=== PATIENT | male | born 1955 | race Hispanic/Latino ===

== ENCOUNTER 2018-12-22 01:03 | Inpatient (IN) | payer OTHER ==
[2018-12-22] MEDS ORDERED: NACL 0.9% 1000 ML 1,000 ML IV ONE (01:20)
[2018-12-22] MEDS ORDERED: MORPHINE IV ONE (01:20)
[2018-12-22] MEDS ORDERED: ZOFRAN IV ONE (01:20)
[2018-12-22] MEDS ORDERED: NACL 0.9% 500 ML 500 ML IV ONE (01:20)
[2018-12-22] MEDS ORDERED: NACL 0.9% 1000 ML 2,000 ML IV ONE (01:20)
[2018-12-22] MEDS ORDERED: D50W (25GM) Syringe IV ONE (01:24)
[2018-12-22] MEDS ORDERED: LEVAQUIN 750MG/150ML 750 MG/150 ML BAG IV ONE (01:45)
--- NOTE | 2018-12-22 01:46 | Emergency Department Report ---
ED General Adult HPI - General Chief complaint: Abdominal Pain Stated complaint: RT FLANK PAIN Time Seen by Provider: 12/22/18 01:12 Source: patient, EMS (ems notes not available at time of chart dictation), RN notes reviewed Mode of arrival: Stretcher Limitations: Physical Limitation - History of Present Illness Initial comments: This is a pleasant 63-year-old gentleman who is not known to this provider previously, reports a past medical history of hypertension and obesity. The patient presents to the emergency room today with a complaint of nont raumatic right flank and right upper quadrant pain which started approximately 24 hours ago. The pain is sharp, constant, increases with palpation, positioning, and decreases with rest. Patient may have had an episode of vomiting 1, he denies lower abdominal pain, testicular pain, diarrhea, urinary symptoms. He denies DVT, pulmonary embolus risk factors, and he denies a history of hypoxia or previous respiratory failure. -: Gradual Location: abdomen Radiation: non-radiation Severity scale (0 -10): 10 Quality: aching Consistency: constant Improves with: other Worsens with: other Associated Symptoms: fever/chills (questionable fever, not certain), headaches, malaise, weakness. denies: confusion, chest pain, cough, diaphoresis, rash, seizure - Related Data Home Medications Medication Instructions Recorded Confirmed Last Taken Methadone [Dolophine] 10 mg PO DAILY 12/22/18 12/22/18 Unknown Allergies Allergy/AdvReac Type Severity Reaction Status Date / Time No Known Allergies Allergy Verified 12/22/18 01:25 ED Review of Systems ROS: Stated complaint: RT FLANK PAIN Other details as noted in HPI Constitutional: malaise Eyes: denies: vision change ENT: denies: epistaxis Respiratory: denies: cough Cardiovascular: denies: chest pain Gastrointestinal: abdominal pain Genitourinary: denies: dysuria, testicular pain Musculoskeletal: denies: back pain Skin: denies: lesions Neurological: weakness Psychiatric: denies: anxiety ED Past Medical Hx - Past Medical History Hx Hypertension: Yes Additional medical history: Heroin use - Social History Smoking Status: Never Smoker Substance Use Type: Alcohol - Medications Home Medications: Home Medications Medication Instructions Recorded Confirmed Last Taken Type Methadone [Dolophine] 10 mg PO DAILY 12/22/18 12/22/18 Unknown History ED Physical Exam - General Limitations: No Limitations General appearance: alert, in no apparent distress, obese - Head Head exam: Present: atraumatic, normocephalic - Eye Eye exam: Present: normal appearance, EOMI. Absent: nystagmus - ENT ENT exam: Present: normal exam, normal orophraynx, mucous membranes moist, normal external ear exam - Neck Neck exam: Present: normal inspection, full ROM. Absent: tenderness, meningismus - Respiratory Respiratory exam: Present: normal lung sounds bilaterally. Absent: respiratory distress - Cardiovascular Cardiovascular Exam: Present: regular rate, normal rhythm, normal heart sounds. Absent: bradycardia, tachycardia, irregular rhythm, systolic murmur, diastolic murmur, rubs, gallop - GI/Abdominal GI/Abdominal exam: Present: soft, tenderness, guarding, other (there is right upper quadrant tenderness, with a positive Lehman sign). Absent: distended, rebound, rigid, pulsatile mass - Rectal Rectal exam: Present: deferred - Extremities Exam Extremities exam: Present: normal inspection, full ROM, other (2+ pulses noted in the bilateral upper, lower extremities. Compartments soft. No long bony tenderness. The pelvis is stable.). Absent: pedal edema, joint swelling, calf tenderness - Back Exam Back exam: Present: normal inspection, full ROM. Absent: tenderness, CVA tenderness (R), paraspinal tenderness, vertebral tenderness - Neurological Exam Neurological exam: Present: alert, oriented X3, CN II-XII intact, other (Extraocular movements intact. Tongue midline. No facial droop. Facial sensation intact to light touch in the V1, V2, V3 distribution bilaterally. 5 and 5 strength in 4 extremities.. Sensation is intact to light touch in 4 extremities.). Absent: motor sensory deficit - Psychiatric Psychiatric exam: Present: anxious - Skin Skin exam: Present: warm, dry, intact, normal color. Absent: rash ED Course Vital Signs 12/22/18 12/22/18 12/22/18 01:19 01:27 01:46 Temperature 99.2 F 99.2 F Pulse Rate 94 H 84 Respiratory 18 16 Rate Blood Pressure 118/63 118/63 [Right] O2 Sat by Pulse 93 98 96 Oximetry - Reevaluation(s) Reevaluation #1: 12/22/18 02:18 Differential diagnosis, including but not limited to: Cholecystitis, pneumonia, intra-abdominal infection, pneumonia Assessment and plan: 63-year-old gentleman with very tender abdomen, low-grade temperature, heart rate greater than 90, concerning for abdominal sepsis. We will treat the patient empirically according to the sepsis protocol. He will be covered with IV fluids, pain medication, nausea medication and empiric Levaquin at this juncture. Diagnostics pending at this time. To my interpretation, the X-ray of the chest appears to represent a right lower lobe pneumonia or consolidation, but the radiologist interpreted this as hypo-aerated. A noncontrast CT scan of the abdomen and pelvis may better differentiate. Right upper quadrant ultrasound is also pending. Reevaluation #2: 12/22/18 03:12 Case presents to Hospital physician, Dr. Mock, she accepts the patient to the medical service. ED Medical Decision Making - Lab Data Result diagrams: 12/22/18 01:27 12/22/18 01:27 Vital Signs 12/22/18 12/22/18 12/22/18 01:19 01:27 01:46 Temperature 99.2 F 99.2 F Pulse Rate 94 H 84 Respiratory 18 16 Rate Blood Pressure 118/63 118/63 [Right] O2 Sat by Pulse 93 98 96 Oximetry Lab Results 12/22/18 Range/Units 01:27 WBC 13.1 H (4.5-11.0) K/mm3 RBC 3.91 (3.65-5.03) M/mm3 Hgb 11.2 L (11.8-15.2) gm/dl Hct 33.7 L (35.5-45.6) % MCV 86 (84-94) fl MCH 29 (28-32) pg MCHC 33 (32-34) % RDW 15.4 H (13.2-15.2) % Plt Count 226 (140-440) K/mm3 Lymph % (Auto) 7.4 L (13.4-35.0) % [facility] % (Auto) 4.9 (0.0-7.3) % Eos % (Auto) 0.1 (0.0-4.3) % Baso % (Auto) 0.2 (0.0-1.8) % Lymph # 1.0 L (1.2-5.4) K/mm3 [facility] # 0.6 (0.0-0.8) K/mm3 Eos # 0.0 (0.0-0.4) K/mm3 Baso # 0.0 (0.0-0.1) K/mm3 Seg Neutrophils % 87.4 H (40.0-70.0) % Seg Neutrophils # 11.4 H (1.8-7.7) K/mm3 - EKG Data -: EKG Interpreted by Me EKG shows normal: sinus rhythm Rate: normal - EKG Data When compared to previous EKG there are: previous EKG unavailable 12/22/18 02:19 Sinus, 87 bpm, normal axis, QTC prolonged, low voltage in the lateral leads, abnormal EKG, not consistent with ST elevation myocardial infarction. - Radiology Data Radiology results: report reviewed, image reviewed X-ray of the chest negative for acute disease. Appears to be hypoaerated Print Report Referring Physician: YONI PANDEY Patient Name: RIYA REDDY Date of : 1955 Sex: Male Report Date: 2018-12-22 Report Status: Finalized Findings [facility] [address] [place] [address] Cat Scan Report Signed Patient: RIYA REDDY MR#: [id number] : 1955 Acct:[id number] Age/Sex: 63 / M ADM Date: 12/22/18 Loc: ED Attending Dr: Ordering Physician: YONI PANDEY MD Date of Service: 12/22/18 Procedure(s): CT abdomen pelvis wo con Accession Number(s): [id number] cc: YONI PANDEY MD FINAL REPORT EXAM: CT ABDOMEN PELVIS WO CON HISTORY: ruq pain pna vs cholecystitis TECHNIQUE: Helical CT scan through the abdomen and pelvis without contrast. Images are reconstructed in the sagittal and coronal planes. PRIORS: None. FINDINGS: Solid organ and bowel evaluation is limited without intravenous contrast. Bowel evaluation is limited without oral contrast. Images through the lower thorax show extensive coronary artery atherosclerotic calcification. The heart was not completely scanned. The liver, gallbladder, pancreas, spleen and left adrenal gland appear grossly normal. There is a 2.2 cm right adrenal mass most likely representing an adrenal adenoma. It has scattered coarse calcifications possibly from old hemorrhage. The kidneys appear grossly normal. The pelvic organs appear grossly normal. The stomach appears grossly within normal limits. There is diffuse thickening of the wall of the right colon with associated pericolonic inflammatory fat change. There is an air-fluid level in the transverse colon without wall thickening. There is a relatively large amount of stool in the left and sigmoid colon without inflammatory change. A normal- appearing appendix is identified. The abdominal aorta has a normal diameter. There are multiple bilateral old healed old bilateral rib fractures. There is multilevel degenerative disc and facet disease of the lumbar spine. IMPRESSION: 1. Findings are consistent with diffuse colitis of the right colon 2. Question constipation 3. Extensive coronary artery atherosclerotic calcification Transcribed By: ML Dictated By: VINCENZO DE LEÓN MD Electronically Authenticated By: VINCENZO DE LEÓN MD Signed Date/Time: 12/22/18 8965 Critical care attestation.: If time is entered above; I have spent that time in minutes in the direct care of this critically ill patient, excluding procedure time. ED Disposition Clinical Impression: SIRS (systemic inflammatory response syndrome) Disposition: OP ADMIT IP TO THIS HOSP Is pt being admited?: Yes Condition: Good Referrals: STAN RUFF MD [Primary Care Provider] - 3-5 Days
--- NOTE | 2018-12-22 02:00 | XRay Report ---
FINAL REPORT EXAM: XR CHEST 1V AP HISTORY: ruq pain hypoxia TECHNIQUE: AP portable view of the chest. PRIORS: None. FINDINGS: The cardiomediastinal silhouette appears normal. The lungs are hypo aerated but clear. There is an ol d, healed left clavicular fracture. IMPRESSION: No evidence of acute cardiopulmonary disease.
[2018-12-22 02:18] LABS: Basophils % (Auto) 0.2 % (0.0-1.8); Eosinophils % (Auto) 0.1 % (0.0-4.3); Hematocrit 33.7 % (35.5-45.6); Hemoglobin 11.2 gm/dl (11.8-15.2); Lymphocytes % (Auto) 7.4 % (13.4-35.0); Mean Corpuscular HGB Conc 33 % (32-34); Mean Corpuscular Volume 86 fl (84-94); Monocytes # (Auto) 0.6 K/mm3 (0.0-0.8); Monocytes % (Auto) 4.9 % (0.0-7.3); Platelet Count 226 K/mm3 (140-440); Red Blood Count 3.91 M/mm3 (3.65-5.03); Red Cell Distribution Width 15.4 % (13.2-15.2)
[2018-12-22 02:32] LABS: INR 0.99 (0.87-1.13)
[2018-12-22 02:33] LABS: Partial Thromboplastin Time 26.5 Sec. (24.2-36.6)
[2018-12-22 02:39] LABS: Alanine Aminotransferase 11 units/L (7-56); BUN/Creatinine Ratio 25; Blood Urea Nitrogen 15 mg/dL (9-20); Calcium 8.3 mg/dL (8.4-10.2); Hemolysis Index 63
[2018-12-22] MEDS ORDERED: FLAGYL PO STA (02:56)
--- NOTE | 2018-12-22 03:09 | Cat Scan Report ---
FINAL REPORT EXAM: CT ABDOMEN PELVIS WO CON HISTORY: ruq pain pna vs cholecystitis TECHNIQUE: Helical CT scan through the abdomen and pelvis without contrast. Images are reconstructed in the sagittal and coronal planes. PRIORS: None. FINDINGS: Solid organ and bowel evaluation is limited without intravenous contrast. Bowel evaluation is limited without oral contrast. Images through the lower thorax show extensive coronary artery atherosclerotic calcification. The hea rt was not completely scanned. The liver, gallbladder, pancreas, spleen and left adrenal gland appear grossly normal. There is a 2.2 cm right adrenal mass most likely representing an adrenal adenoma. It has scattered coarse calcifica tions possibly from old hemorrhage. The kidneys appear grossly normal. The pelvic organs appear grossly normal. The stomach appears grossly within normal limits. There is diffuse thickening of the wall of the right colon with associated pericolonic inflammatory f at change. There is an air-fluid level in the transverse colon without wall thickening. There is a re latively large amount of stool in the left and sigmoid colon without inflammatory change. A normal-ap pearing appendix is identified. The abdominal aorta has a normal diameter. There are multiple bilateral old healed old bilateral rib fractures. There is multilevel degenerative disc and facet disease of the lumbar spine. IMPRESSION: 1. Findings are consistent with diffuse colitis of the right colon 2. Question constipation 3. Extensive coronary artery atherosclerotic calcification
--- NOTE | 2018-12-22 04:02 | Ultrasound Report ---
FINAL REPORT EXAM: US ABDOMEN LIMITED HISTORY: ruq pain ? cholecystitis TECHNIQUE: Real-time sonography was performed of the right upper quadrant and images are submitted f or interpretation. PRIORS: None. FINDINGS: The liver has a normal homogeneous echotexture without focal lesions. The gallbladder appears normal without stones. The common bile duct is dilated up to 1 cm. The pancreas has a normal echogenicity and appearance. The visualized segments of the abdominal aorta appear normal. The right kidney appears normal in size, shape and echogenicity, measuring 10.9 x 6.7 x 6.0 cm. IMPRESSION: The gallbladder appears normal Mild dilatation of the common bile duct. Recommend correlation with laboratory evidence of biliary di latation.
[2018-12-22] MEDS ORDERED: SODIUM CHLORIDE FLUSH SYRINGE 10 ML IV PRN (04:04)
[2018-12-22] MEDS ORDERED: TYLENOL PO PRN (04:04)
[2018-12-22] MEDS ORDERED: ZOFRAN IV PRN (04:04)
--- NOTE | 2018-12-22 04:18 | History and Physical Report ---
History of Present Illness Date of examination: 12/22/18 History of present illness: 63-year-old man history of hypertension comes to emergency room with complaint of abdominal pain. Pain is in the right lower quadrant that started yesterday, sharp, constant, intensity 7/10, no radiation, cannot identify exacerbating f actor, relieved with pain medication. Admits to chills Review of systems Constitutional: no weight loss, + fever Ears, eyes, nose, mouth and throat: no nasal congestion, no nasal discharge, no sinus pressure, no vision change, no red eye. Neck: No neck pain or rigidity. Cardiovascular: no palpitations, chest pain Respiratory: no cough, shortness of breath Gastrointestinal: no hematochezia, +abdominal pain Genitourinary : no frequency , no hematuria Musculoskeletal: no joint swelling or muscle ache Integumentary: no rash, no pruritis Neurological: no parathesias, no focal weakness Endocrine: no cold or heat intolerance, no polyuria or polydipsia Hematologic/Lymphatic: no easy bruising, no easy bleeding, no gland swelling Allergic/Immunologic: no urticaria, no angioedema. PAST MEDICAL HISTORY:hypertension PAST SURGICAL HISTORY: None SOCIAL HISTORY: +alcohol, drugs, +tobacco FAMILY HISTORY: Hypertension Medications and Allergies Allergies Allergy/AdvReac Type Severity Reaction Status Date / Time No Known Allergies Allergy Verified 12/22/18 01:25 Home Medications Medication Instructions Recorded Confirmed Last Taken Type Methadone [Dolophine] 10 mg PO DAILY 12/22/18 12/22/18 Unknown History Active Meds: Active Medications Acetaminophen (Tylenol) 650 mg PO Q4H PRN PRN Reason: Pain MILD(1-3)/Fever >100.5/QUARLES Enoxaparin Sodium (Lovenox) 40 mg SUB-Q QDAY@1000 [facility] Sodium Chloride (Nacl 0.45% 1000 Ml) 1,000 mls @ 125 mls/hr IV DIRECT L[facility]ZO Levofloxacin/Dextrose (Levaquin 750mg/150ml) 750 mg in 150 mls @ 100 mls/hr IV Q24H [facility] Metronidazole (Flagyl) 500 mg PO Q8H [facility]; Protocol Morphine Sulfate (Morphine) 2 mg IV Q4H PRN PRN Reason: Pain, Moderate (4-6) Ondansetron HCl (Zofran) 4 mg IV Q4H PRN PRN Reason: Nausea And Vomiting Sodium Chloride (Sodium Chloride Flush Syringe 10 Ml) 10 ml IV BID LORENZO Sodium Chloride (Sodium Chloride Flush Syringe 10 Ml) 10 ml IV PRN PRN PRN Reason: LINE FLUSH Exam - Physical Exam Narrative exam: General Apperance: The patient lying in bed, breathing comfortable HEENT: Normocephalic, atraumatic. Pupils equally round and reactive to light, EOMI, no sclericterus or JVD or thyromegaly or nodule. , no carotid bruit, mucous membranes moist, no exudate or erythema Heart: S1-S2, regular is rhythm Lungs: Clear to auscultation bilaterally, breathing comfortable Abdomen: Positive bowel sounds, soft, tender in RLQ, nondistended, no organomegaly Extremities: No edema cyanosis clubbing Skin: no rash, nodule, warm and dry Neuro: cranial nerves 2-12 intact, speech is fluent, motor/sensory intact - Constitutional Vitals: Temp Pulse Resp BP Pulse Ox 99.2 F 84 16 118/63 96 12/22/18 01:46 12/22/18 01:46 12/22/18 01:46 12/22/18 01:46 12/22/18 01:46 Results - Labs CBC & Chem 7: 12/22/18 01:27 12/22/18 01:27 Labs: Abnormal lab results 12/22/18 12/22/18 12/22/18 Range/Units 01:27 01:27 01:27 WBC 13.1 H (4.5-11.0) K/mm3 Hgb 11.2 L (11.8-15.2) gm/dl Hct 33.7 L (35.5-45.6) % RDW 15.4 H (13.2-15.2) % Lymph % (Auto) 7.4 L (13.4-35.0) % Lymph # 1.0 L (1.2-5.4) K/mm3 Seg Neutrophils % 87.4 H (40.0-70.0) % Seg Neutrophils # 11.4 H (1.8-7.7) K/mm3 Creatinine 0.6 L (0.8-1.5) mg/dL Glucose 120 H (75-100) mg/dL Calcium 8.3 L (8.4-10.2) mg/dL Lipase 7 L (13-60) units/L - Imaging and Cardiology CT scan - abdomen: report reviewed CT scan - pelvis: report reviewed Assessment and Plan Assessment Colitis, acute onset Hypertension Obesity Plan Start IV fluids, IV Levaquin, Flagyl Cultures, place on bowel rest, consult GI IV morphine, DVT prophylaxis
[2018-12-22 05:07] LABS: Bilirubin,Urine NEG (Negative); Blood,Urine NEG (Negative); Color,Urine Yellow (Yellow); Mucus,Urine FEW /HPF; Urobilinogen,Urine < 2.0 mg/dL (<2.0); WBC,Urine < 1.0 /HPF (0.0-6.0)
[2018-12-22] MEDS: MORPHINE IV PRN ×4 (06:08→22:43)
[2018-12-22] MEDS: NACL 0.45% 1000 ML 1,000 ML IV SCH ×3 (06:12→22:51)
[2018-12-22] MEDS ORDERED: LOVENOX SUB-Q SCH (10:00)
[2018-12-22] MEDS: FLAGYL PO SCH ×2 (10:18→22:42)
[2018-12-22] MEDS: LOVENOX SUB-Q SCH (10:18)
[2018-12-22] MEDS: SODIUM CHLORIDE FLUSH SYRINGE 10 ML IV SCH ×2 (10:19→22:42)
--- NOTE | 2018-12-22 12:43 | Event Note ---
Date: 12/22/18 63-year-old male patient was admitted for abdominal pain Workup was consistent with diffuse colitis Patient is on nothing by mouth status on empiric antibiotics GI evaluated, recommendations noted medical records reviewed, Started clear liquids ,agree with the current management Plan of care is reviewed with the patient and his nurse
--- NOTE | 2018-12-22 13:05 | Gastroenterology Consultation ---
Addendum entered and electronically signed by INDIA CUEVAS MD 12/22/18 16:17: Patient seen and examined on 12/22/2018. 63 yo male with pmh of HTN, PVD, and CAD admitted for RLQ abdominal pain. CT abdomen showed right sided colitis. DDx include infectious etiology vs ischemic colitis. Will monitor while on empiric antibiotics. Original Note: History of Present Illness - Reason for Consult Consult date: 12/22/18 colitis Requesting physician: DAVID TIPTON - History of Present Illness Patient is a 63 y/o male with PMH of HTN, PVD, CAD (s/p angioplasty), and substance abuse (ex heroin user; now on methadone) who presented to ED with c/o abdominal pain. Upon admission, CT showed colitis to which GI has been consulted. This morning patient was sitting on the side to the bed w/o acute distress. He report RLQ abd pain x 2 days with chills. Admits to chronic constipation 2/2 narcotic use. Denies CP, SOB, wt loss, N/V, signs of bleeding, or diarrhea. No recent abx therapy, travel, or known ill contacts. No hx or Fhx of IBD or colon cancer. No previous colonoscopy. Past History Past Medical History: other (as per HPI) Past Surgical History: Other (vascular surgery, angioplasty) Social history: other (former drug user (heroin); chronic narcotic use (methadone), alcohol) Family history: hypertension Medications and Allergies Allergies Allergy/AdvReac Type Severity Reaction Status Date / Time No Known Allergies Allergy Verified 12/22/18 01:25 Home Medications Medication Instructions Recorded Confirmed Last Taken Type Methadone [Dolophine] 10 mg PO DAILY 12/22/18 12/22/18 Unknown History Active Meds: Active Medications Acetaminophen (Tylenol) 650 mg PO Q4H PRN PRN Reason: Pain MILD(1-3)/Fever >100.5/QUARLES Enoxaparin Sodium (Lovenox) 40 mg SUB-Q QDAY@1000 LORENZO Last Admin: 12/22/18 10:18 Dose: 40 mg Documented by: Sodium Chloride (Nacl 0.45% 1000 Ml) 1,000 mls @ 125 mls/hr IV DIRECT LORENZO Last Admin: 12/22/18 12:59 Dose: 125 mls/hr Documented by: Levofloxacin/Dextrose (Levaquin 750mg/150ml) 750 mg in 150 mls @ 100 mls/hr IV Q24H [facility] Metronidazole (Flagyl) 500 mg PO Q8HR [facility]; Protocol Last Admin: 12/22/18 10:18 Dose: 500 mg Documented by: Morphine Sulfate (Morphine) 2 mg IV Q4H PRN PRN Reason: Pain, Moderate (4-6) Last Admin: 12/22/18 10:33 Dose: 2 mg Documented by: Ondansetron HCl (Zofran) 4 mg IV Q4H PRN PRN Reason: Nausea And Vomiting Sodium Chloride (Sodium Chloride Flush Syringe 10 Ml) 10 ml IV BID [facility] Last Admin: 12/22/18 10:19 Dose: 10 ml Documented by: Sodium Chloride (Sodium Chloride Flush Syringe 10 Ml) 10 ml IV PRN PRN PRN Reason: LINE FLUSH medications reviewed/updated as required Review of Systems - Review of Systems All systems: negative Gastrointestinal: abdominal pain Exam - Constitutional Vital Signs: Temp Pulse Resp BP Pulse Ox 100.0 F H 78 17 118/66 96 12/22/18 05:23 12/22/18 05:23 12/22/18 06:38 12/22/18 05:23 12/22/18 05:23 General appearance: no acute distress - EENT Eyes: PERRL, EOM intact ENT: hearing intact - Respiratory Respiratory: bilateral: diminished - Cardiovascular Rhythm: regular Heart Sounds: Present: S1 & S2 - Gastrointestinal General gastrointestinal: Present: soft, tender (RLQ), non-distended, normal bowel sounds - Neurologic Neurological: alert and oriented x3 - Labs CBC & Chem 7: 12/22/18 01:27 12/22/18 01:27 Lab Results: Laboratory Results - last 24 hr 12/22/18 12/22/18 12/22/18 01:27 01:27 01:27 WBC 13.1 H RBC 3.91 Hgb 11.2 L Hct 33.7 L MCV 86 MCH 29 MCHC 33 RDW 15.4 H Plt Count 226 Lymph % (Auto) 7.4 L [place] % (Auto) 4.9 Eos % (Auto) 0.1 Baso % (Auto) 0.2 Lymph # 1.0 L [place] # 0.6 Eos # 0.0 Baso # 0.0 Seg Neutrophils % 87.4 H Seg Neutrophils # 11.4 H PT 13.7 INR 0.99 APTT 26.5 Sodium 138 Potassium 4.1 Chloride 98.6 Carbon Dioxide 27 Anion Gap 17 BUN 15 Creatinine 0.6 L Estimated GFR > 60 BUN/Creatinine Ratio 25 Glucose 120 H Lactic Acid Calcium 8.3 L Total Bilirubin 0.90 AST 16 ALT 11 Alkaline Phosphatase 59 Total Creatine Kinase Troponin T Total Protein 6.4 Albumin 4.0 Albumin/Globulin Ratio 1.7 Lipase Urine Color Urine Turbidity Urine pH Ur Specific [place] Urine Protein Urine Glucose (UA) Urine Ketones Urine Blood Urine Nitrite Urine Bilirubin Urine Urobilinogen Ur Leukocyte Esterase Urine WBC (Auto) Urine RBC (Auto) U Epithel Cells (Auto) Urine Mucus 12/22/18 12/22/18 12/22/18 01:27 01:27 03:31 WBC RBC Hgb Hct MCV MCH MCHC RDW Plt Count Lymph % (Auto) [place] % (Auto) Eos % (Auto) Baso % (Auto) Lymph # [place] # Eos # Baso # Seg Neutrophils % Seg Neutrophils # PT INR APTT Sodium Potassium Chloride Carbon Dioxide Anion Gap BUN Creatinine Estimated GFR BUN/Creatinine Ratio Glucose Lactic Acid 1.40 1.20 Calcium Total Bilirubin AST ALT Alkaline Phosphatase Total Creatine Kinase 83 Troponin T < 0.010 Total Protein Albumin Albumin/Globulin Ratio Lipase 7 L Urine Color Urine Turbidity Urine pH Ur Specific [place] Urine Protein Urine Glucose (UA) Urine Ketones Urine Blood Urine Nitrite Urine Bilirubin Urine Urobilinogen Ur Leukocyte Esterase Urine WBC (Auto) Urine RBC (Auto) U Epithel Cells (Auto) Urine Mucus 12/22/18 12/22/18 04:48 05:59 WBC RBC Hgb Hct MCV MCH MCHC RDW Plt Count Lymph % (Auto) [place] % (Auto) Eos % (Auto) Baso % (Auto) Lymph # [place] # Eos # Baso # Seg Neutrophils % Seg Neutrophils # PT INR APTT Sodium Potassium Chloride Carbon Dioxide Anion Gap BUN Creatinine Estimated GFR BUN/Creatinine Ratio Glucose Lactic Acid 1.00 Calcium Total Bilirubin AST ALT Alkaline Phosphatase Total Creatine Kinase Troponin T Total Protein Albumin Albumin/Globulin Ratio Lipase Urine Color Yellow Urine Turbidity Clear Urine pH 7.0 Ur Specific [place] 1.021 Urine Protein 30 mg/dl Urine Glucose (UA) Neg Urine Ketones Neg Urine Blood Neg Urine Nitrite Neg Urine Bilirubin Neg Urine Urobilinogen < 2.0 Ur Leukocyte Esterase Tr Urine WBC (Auto) < 1.0 Urine RBC (Auto) 1.0 U Epithel Cells (Auto) < 1.0 Urine Mucus Few Assessment and Plan 1.RLQ abd pain 2.colitis seen on CT -temp 100.0 -WBC 13.1 -H/H 11.2/33.7- no active signs of bleeding -LFTs WNL -abd CT showed diffuse colitis of right colon -etiology uncler- possibly infectious vs inflammatory vs ischemic vs other -no plan for colonoscopy at this time, will consider based on progress if symptoms fail to improve -CRP in am -continue empiric antibiotics (flagyl/levaquin) -stool studies if diarrhea develops -okay for clear liquids -continue supportive care -will follow
[2018-12-23] MEDS: LEVAQUIN 750MG/150ML 750 MG/150 ML BAG IV SCH (01:25)
[2018-12-23] MEDS: MORPHINE IV PRN ×4 (04:02→22:25)
[2018-12-23] MEDS: FLAGYL PO SCH ×3 (05:42→22:23)
[2018-12-23 07:44] LABS: Basophils % (Auto) 0.1 % (0.0-1.8); Eosinophils # (Auto) 0.1 K/mm3 (0.0-0.4); Eosinophils % (Auto) 1.3 % (0.0-4.3); Hematocrit 29.4 % (35.5-45.6); Hemoglobin 9.9 gm/dl (11.8-15.2); Lymphocytes % (Auto) 10.6 % (13.4-35.0); Mean Corpuscular HGB Conc 34 % (32-34); Mean Corpuscular Volume 87 fl (84-94); Monocytes # (Auto) 0.5 K/mm3 (0.0-0.8); Monocytes % (Auto) 5.6 % (0.0-7.3); Platelet Count 187 K/mm3 (140-440); Red Cell Distribution Width 15.3 % (13.2-15.2)
[2018-12-23 07:50] LABS: BUN/Creatinine Ratio 16; Blood Urea Nitrogen 8 mg/dL (9-20); Calcium 8.1 mg/dL (8.4-10.2); Hemolysis Index 3
[2018-12-23] MEDS: NACL 0.45% 1000 ML 1,000 ML IV SCH ×2 (09:39→17:22)
[2018-12-23] MEDS: SODIUM CHLORIDE FLUSH SYRINGE 10 ML IV SCH ×2 (09:40→22:26)
[2018-12-23] MEDS: LOVENOX SUB-Q SCH (09:40)
--- NOTE | 2018-12-23 10:29 | Progress Note ---
Hospitalist Physical - Constitutional Vitals: Temp Pulse Resp BP Pulse Ox 98.4 F 78 24 143/67 92 12/23/18 05:21 12/23/18 05:21 12/23/18 05:21 12/23/18 05:21 12/23/18 05:21 Results - Labs CBC & Chem 7: 12/23/18 06:23 12/23/18 06:23 Labs: Laboratory Last Values WBC 9.6 K/mm3 (4.5-11.0) 12/23/18 06:23 RBC 3.40 M/mm3 (3.65-5.03) L 12/23/18 06:23 Hgb 9.9 gm/dl (11.8-15.2) L 12/23/18 06:23 Hct 29.4 % (35.5-45.6) L 12/23/18 06:23 MCV 87 fl (84-94) 12/23/18 06:23 MCH 29 pg (28-32) 12/23/18 06:23 MCHC 34 % (32-34) 12/23/18 06:23 RDW 15.3 % (13.2-15.2) H 12/23/18 06:23 Plt Count 187 K/mm3 (140-440) 12/23/18 06:23 Lymph % (Auto) 10.6 % (13.4-35.0) L 12/23/18 06:23 [place] % (Auto) 5.6 % (0.0-7.3) 12/23/18 06:23 Eos % (Auto) 1.3 % (0.0-4.3) 12/23/18 06:23 Baso % (Auto) 0.1 % (0.0-1.8) 12/23/18 06:23 Lymph # 1.0 K/mm3 (1.2-5.4) L 12/23/18 06:23 [place] # 0.5 K/mm3 (0.0-0.8) 12/23/18 06:23 Eos # 0.1 K/mm3 (0.0-0.4) 12/23/18 06:23 Baso # 0.0 K/mm3 (0.0-0.1) 12/23/18 06:23 Seg Neutrophils % 82.4 % (40.0-70.0) H 12/23/18 06:23 Seg Neutrophils # 7.9 K/mm3 (1.8-7.7) H 12/23/18 06:23 PT 13.7 Sec. (12.2-14.9) 12/22/18 01:27 INR 0.99 (0.87-1.13) 12/22/18 01:27 APTT 26.5 Sec. (24.2-36.6) 12/22/18 01:27 Sodium 140 mmol/L (137-145) 12/23/18 06:23 Potassium 3.7 mmol/L (3.6-5.0) 12/23/18 06:23 Chloride 100.9 mmol/L (98-107) 12/23/18 06:23 Carbon Dioxide 27 mmol/L (22-30) 12/23/18 06:23 Anion Gap 16 mmol/L 12/23/18 06:23 BUN 8 mg/dL (9-20) L 12/23/18 06:23 Creatinine 0.5 mg/dL (0.8-1.5) L 12/23/18 06:23 Estimated GFR > 60 ml/min 12/23/18 06:23 BUN/Creatinine Ratio 16 % 12/23/18 06:23 Glucose 88 mg/dL (75-100) 12/23/18 06:23 Lactic Acid 1.00 mmol/L (0.7-2.0) 12/22/18 05:59 Calcium 8.1 mg/dL (8.4-10.2) L 12/23/18 06:23 Total Bilirubin 0.90 mg/dL (0.1-1.2) 12/22/18 01:27 AST 16 units/L (5-40) 12/22/18 01:27 ALT 11 units/L (7-56) 12/22/18 01:27 Alkaline Phosphatase 59 units/L (35-129) 12/22/18 01:27 Total Creatine Kinase 83 units/L (55-170) 12/22/18 01:27 Troponin T < 0.010 ng/mL (0.00-0.029) 12/22/18 01:27 C-Reactive Protein 22.80 mg/dL (0.00-1.30) H 12/23/18 06:23 Total Protein 6.4 g/dL (6.3-8.2) 12/22/18 01:27 Albumin 4.0 g/dL (3.9-5) 12/22/18 01:27 Albumin/Globulin Ratio 1.7 % 12/22/18 01:27 Lipase 7 units/L (13-60) L 12/22/18 01:27 Urine Color Yellow (Yellow) 12/22/18 04:48 Urine Turbidity Clear (Clear) 12/22/18 04:48 Urine pH 7.0 (5.0-7.0) 12/22/18 04:48 Ur Specific [place] 1.021 (1.003-1.030) 12/22/18 04:48 Urine Protein 30 mg/dl mg/dL (Negative) 12/22/18 04:48 Urine Glucose (UA) Neg mg/dL (Negative) 12/22/18 04:48 Urine Ketones Neg mg/dL (Negative) 12/22/18 04:48 Urine Blood Neg (Negative) 12/22/18 04:48 Urine Nitrite Neg (Negative) 12/22/18 04:48 Urine Bilirubin Neg (Negative) 12/22/18 04:48 Urine Urobilinogen < 2.0 mg/dL (<2.0) 12/22/18 04:48 Ur Leukocyte Esterase Tr (Negative) 12/22/18 04:48 Urine WBC (Auto) < 1.0 /HPF (0.0-6.0) 12/22/18 04:48 Urine RBC (Auto) 1.0 /HPF (0.0-6.0) 12/22/18 04:48 U Epithel Cells (Auto) < 1.0 /HPF (0-13.0) 12/22/18 04:48 Urine Mucus Few /HPF 12/22/18 04:48
--- NOTE | 2018-12-23 10:39 | Gastroenterology Progress Note ---
Addendum entered and electronically signed by INDIA CUEVAS MD 12/23/18 15:15: Patient seen and examined on 12/23/2018. Agree with A/P as stated. Patient clinically improving. Likely infectious colitis vs ischemic. Continue with empiric abx and supportive care. Advance diet as tolerated. If pain continues to improve and tolerates diet, okay to be d/c in am per GI standpoint on antibiotics with follow up in clinic ~2-3 weeks Original Note: Assessment and Plan 1.RLQ abd pain 2.colitis seen on CT -afebrile -WBC 9.6-trended down -H/H 9.9/29.4- no active signs of bleeding -LFTs WNL -CRP 22.8 -abd CT showed diffuse colitis of right colon -etiology uncler- possibly infectious vs inflammatory vs ischemic vs other -clinically, patient is stable wiht RLQ abd pain now improving. No N/V, diarrhea, or signs of bleeding. -no plan for scope at this time -continue empiric antibiotics (flagyl/levaquin) -stool studies if diarrhea -okay to advance diet to GI soft -continue supportive care -recommend colonoscopy as an outpatient in 4-6 weeks for further evaluation once acute colitis has resolved -if pain continues to improve and tolerates diet, okay to be d/c in am per GI standpoint on antibiotics with follow up in clinic ~2-3 weeks Subjective Date of service: 12/23/18 Principal diagnosis: colitis Interval history: Patient resting in bed w/o acute distress. Reports RLQ abd pain is improving. No N/V, diarrhea, or signs of bleeding. Objective - Constitutional Vitals: Temp Pulse Resp BP Pulse Ox 98.4 F 78 24 143/67 92 12/23/18 05:21 12/23/18 05:21 12/23/18 05:21 12/23/18 05:21 12/23/18 05:21 General appearance: no acute distress - EENT Eyes: PERRL, EOM intact ENT: hearing intact - Respiratory Respiratory: bilateral: diminished - Cardiovascular Rhythm: regular Heart Sounds: Present: S1 & S2 - Gastrointestinal General gastrointestinal: Present: soft, tender (RLQ), non-distended, normal bowel sounds - Neurologic Neurological: alert and oriented x3 - Labs CBC & Chem 7: 12/23/18 06:23 12/23/18 06:23 Labs: Laboratory Results - last 24 hr 12/23/18 12/23/18 06:23 06:23 WBC 9.6 RBC 3.40 L Hgb 9.9 L Hct 29.4 L MCV 87 MCH 29 MCHC 34 RDW 15.3 H Plt Count 187 Lymph % (Auto) 10.6 L [place] % (Auto) 5.6 Eos % (Auto) 1.3 Baso % (Auto) 0.1 Lymph # 1.0 L [place] # 0.5 Eos # 0.1 Baso # 0.0 Seg Neutrophils % 82.4 H Seg Neutrophils # 7.9 H Sodium 140 Potassium 3.7 Chloride 100.9 Carbon Dioxide 27 Anion Gap 16 BUN 8 L Creatinine 0.5 L Estimated GFR > 60 BUN/Creatinine Ratio 16 Glucose 88 Calcium 8.1 L C-Reactive Protein 22.80 H
[2018-12-23] MEDS: PERCOCET 5/325 PO PRN (19:58)
--- NOTE | 2018-12-23 21:54 | Progress Note ---
Assessment and Plan Assessment and plan: --Diffuse acute colitis;Clear liquids liquids advance diet as tolerated, continue IV antibiotics Flagyl and Levaquin, IV fluids and pain medications GI following --Low-grade fever; secondary to acute colitis Follow cultures, supportive care --History of hypertension; moderate controlled, continue current antihypertensives, , when necessary medications --Obesity; BMI 39.6, weight reduction advised when medically stable, --DVT prophylaxis; Lovenox Closely Monitor the patient and adjust management as needed GI evaluation recommendation noted and appreciated Possible discharge home tomorrow on oral antibiotics if cleared by GI Hospitalist Physical - Constitutional Vitals: Temp Pulse Resp BP Pulse Ox 98.0 F 77 18 143/70 91 12/23/18 17:23 12/23/18 17:23 12/23/18 20:56 12/23/18 17:23 12/23/18 17:23 General appearance: Present: no acute distress, well-nourished - EENT Eyes: Present: PERRL, EOM intact - Neck Neck: Present: supple, normal ROM - Respiratory Respiratory effort: normal Respiratory: negative: rales, rhonchi, wheezing - Cardiovascular Rhythm: regular Heart Sounds: Present: S1 & S2 - Extremities Extremities: no ischemia, No edema - Abdominal General gastrointestinal: soft, non-tender, non-distended, normal bowel sounds - Integumentary Integumentary: Present: clear, warm - Psychiatric Psychiatric: appropriate mood/affect, cooperative - Neurologic Neurologic: CNII-XII intact, moves all extremities Results - Labs CBC & Chem 7: 12/23/18 06:23 12/23/18 06:23 Labs: Laboratory Last Values WBC 9.6 K/mm3 (4.5-11.0) 12/23/18 06:23 RBC 3.40 M/mm3 (3.65-5.03) L 12/23/18 06:23 Hgb 9.9 gm/dl (11.8-15.2) L 12/23/18 06:23 Hct 29.4 % (35.5-45.6) L 12/23/18 06:23 MCV 87 fl (84-94) 12/23/18 06:23 MCH 29 pg (28-32) 12/23/18 06:23 MCHC 34 % (32-34) 12/23/18 06:23 RDW 15.3 % (13.2-15.2) H 12/23/18 06:23 Plt Count 187 K/mm3 (140-440) 12/23/18 06:23 Lymph % (Auto) 10.6 % (13.4-35.0) L 12/23/18 06:23 [place] % (Auto) 5.6 % (0.0-7.3) 12/23/18 06:23 Eos % (Auto) 1.3 % (0.0-4.3) 12/23/18 06:23 Baso % (Auto) 0.1 % (0.0-1.8) 12/23/18 06:23 Lymph # 1.0 K/mm3 (1.2-5.4) L 12/23/18 06:23 [place] # 0.5 K/mm3 (0.0-0.8) 12/23/18 06:23 Eos # 0.1 K/mm3 (0.0-0.4) 12/23/18 06:23 Baso # 0.0 K/mm3 (0.0-0.1) 12/23/18 06:23 Seg Neutrophils % 82.4 % (40.0-70.0) H 12/23/18 06:23 Seg Neutrophils # 7.9 K/mm3 (1.8-7.7) H 12/23/18 06:23 PT 13.7 Sec. (12.2-14.9) 12/22/18 01:27 INR 0.99 (0.87-1.13) 12/22/18 01:27 APTT 26.5 Sec. (24.2-36.6) 12/22/18 01:27 Sodium 140 mmol/L (137-145) 12/23/18 06:23 Potassium 3.7 mmol/L (3.6-5.0) 12/23/18 06:23 Chloride 100.9 mmol/L (98-107) 12/23/18 06:23 Carbon Dioxide 27 mmol/L (22-30) 12/23/18 06:23 Anion Gap 16 mmol/L 12/23/18 06:23 BUN 8 mg/dL (9-20) L 12/23/18 06:23 Creatinine 0.5 mg/dL (0.8-1.5) L 12/23/18 06:23 Estimated GFR > 60 ml/min 12/23/18 06:23 BUN/Creatinine Ratio 16 % 12/23/18 06:23 Glucose 88 mg/dL (75-100) 12/23/18 06:23 Lactic Acid 1.00 mmol/L (0.7-2.0) 12/22/18 05:59 Calcium 8.1 mg/dL (8.4-10.2) L 12/23/18 06:23 Total Bilirubin 0.90 mg/dL (0.1-1.2) 12/22/18 01:27 AST 16 units/L (5-40) 12/22/18 01:27 ALT 11 units/L (7-56) 12/22/18 01:27 Alkaline Phosphatase 59 units/L (35-129) 12/22/18 01:27 Total Creatine Kinase 83 units/L (55-170) 12/22/18 01:27 Troponin T < 0.010 ng/mL (0.00-0.029) 12/22/18 01:27 C-Reactive Protein 22.80 mg/dL (0.00-1.30) H 12/23/18 06:23 Total Protein 6.4 g/dL (6.3-8.2) 12/22/18 01:27 Albumin 4.0 g/dL (3.9-5) 12/22/18 01:27 Albumin/Globulin Ratio 1.7 % 12/22/18 01:27 Lipase 7 units/L (13-60) L 12/22/18 01:27 Urine Color Yellow (Yellow) 12/22/18 04:48 Urine Turbidity Clear (Clear) 12/22/18 04:48 Urine pH 7.0 (5.0-7.0) 12/22/18 04:48 Ur Specific [place] 1.021 (1.003-1.030) 12/22/18 04:48 Urine Protein 30 mg/dl mg/dL (Negative) 12/22/18 04:48 Urine Glucose (UA) Neg mg/dL (Negative) 12/22/18 04:48 Urine Ketones Neg mg/dL (Negative) 12/22/18 04:48 Urine Blood Neg (Negative) 12/22/18 04:48 Urine Nitrite Neg (Negative) 12/22/18 04:48 Urine Bilirubin Neg (Negative) 12/22/18 04:48 Urine Urobilinogen < 2.0 mg/dL (<2.0) 12/22/18 04:48 Ur Leukocyte Esterase Tr (Negative) 12/22/18 04:48 Urine WBC (Auto) < 1.0 /HPF (0.0-6.0) 12/22/18 04:48 Urine RBC (Auto) 1.0 /HPF (0.0-6.0) 12/22/18 04:48 U Epithel Cells (Auto) < 1.0 /HPF (0-13.0) 12/22/18 04:48 Urine Mucus Few /HPF 12/22/18 04:48
[2018-12-24] MEDS: LEVAQUIN 750MG/150ML 750 MG/150 ML BAG IV SCH (01:30)
[2018-12-24] MEDS: NACL 0.45% 1000 ML 1,000 ML IV SCH ×2 (01:34→12:40)
[2018-12-24] MEDS: FLAGYL PO SCH ×2 (05:57→13:27)
[2018-12-24] MEDS: PERCOCET 5/325 PO PRN (06:01)
[2018-12-24] MEDS ORDERED: DOLOPHINE PO SCH (10:00)
[2018-12-24] MEDS: LOVENOX SUB-Q SCH (10:22)
[2018-12-24] MEDS: SODIUM CHLORIDE FLUSH SYRINGE 10 ML IV SCH (10:23)
[2018-12-24] MEDS ORDERED: CYMBALTA PO SCH (13:30)
--- NOTE | 2018-12-24 13:36 | Progress Note ---
Assessment and Plan Assessment and plan: --Diffuse acute colitis;Clear liquids liquids advance diet as tolerated, continue IV antibiotics Flagyl and Levaquin, IV fluids and pain medications GI following --Low-grade fever; secondary to acute colitis Follow cultures, supportive care --History of hypertension; moderate controlled, continue current antihypertensives, , when necessary medications --Obesity; BMI 39.6, weight reduction advised when medically stable, --DVT prophylaxis; Lovenox Closely Monitor the patient and adjust management as needed GI evaluation recommendation noted and appreciated Possible discharge home tomorrow on oral antibiotics if cleared by GI History Interval history: Review of systems Constitutional: No fevers, no malaise, no joint pains CVS: No chest pain, no orthopnea, no dyspnea on exertion, no pedal edema GI: No abdominal pain, no diarrhea, no vomiting, no constipation Respiratory: No shortness of breath, no wheezing, no coughing Hospitalist Physical - Physical exam Narrative exam: General.: Appears well, no distress, nontoxic HEENT: Moist mucous membranes, extraocular muscles intact, no lymphadenopathy Neck: supple Cardiac: S1-S2 heard Lungs: clear to auscultation bilaterally Abdomen: soft , nontender, nondistended, bowel sounds positive Extremities: no edema clubbing or cyanosis Skin: no rash or lesions Neurologic: no gross focal deficits Psych: calm, and cooperative - Constitutional Vitals: Temp Pulse Resp BP Pulse Ox 97.9 F 76 17 145/74 93 12/24/18 05:13 12/24/18 05:13 12/24/18 07:00 12/24/18 05:13 12/24/18 05:13 General appearance: Present: no acute distress, well-nourished Results - Labs CBC & Chem 7: 12/23/18 06:23 12/23/18 06:23 Labs: Laboratory Last Values WBC 9.6 K/mm3 (4.5-11.0) 12/23/18 06:23 RBC 3.40 M/mm3 (3.65-5.03) L 12/23/18 06:23 Hgb 9.9 gm/dl (11.8-15.2) L 12/23/18 06:23 Hct 29.4 % (35.5-45.6) L 12/23/18 06:23 MCV 87 fl (84-94) 12/23/18 06:23 MCH 29 pg (28-32) 12/23/18 06:23 MCHC 34 % (32-34) 12/23/18 06:23 RDW 15.3 % (13.2-15.2) H 12/23/18 06:23 Plt Count 187 K/mm3 (140-440) 12/23/18 06:23 Lymph % (Auto) 10.6 % (13.4-35.0) L 12/23/18 06:23 [place] % (Auto) 5.6 % (0.0-7.3) 12/23/18 06:23 Eos % (Auto) 1.3 % (0.0-4.3) 12/23/18 06:23 Baso % (Auto) 0.1 % (0.0-1.8) 12/23/18 06:23 Lymph # 1.0 K/mm3 (1.2-5.4) L 12/23/18 06:23 [place] # 0.5 K/mm3 (0.0-0.8) 12/23/18 06:23 Eos # 0.1 K/mm3 (0.0-0.4) 12/23/18 06:23 Baso # 0.0 K/mm3 (0.0-0.1) 12/23/18 06:23 Seg Neutrophils % 82.4 % (40.0-70.0) H 12/23/18 06:23 Seg Neutrophils # 7.9 K/mm3 (1.8-7.7) H 12/23/18 06:23 PT 13.7 Sec. (12.2-14.9) 12/22/18 01:27 INR 0.99 (0.87-1.13) 12/22/18 01:27 APTT 26.5 Sec. (24.2-36.6) 12/22/18 01:27 Sodium 140 mmol/L (137-145) 12/23/18 06:23 Potassium 3.7 mmol/L (3.6-5.0) 12/23/18 06:23 Chloride 100.9 mmol/L (98-107) 12/23/18 06:23 Carbon Dioxide 27 mmol/L (22-30) 12/23/18 06:23 Anion Gap 16 mmol/L 12/23/18 06:23 BUN 8 mg/dL (9-20) L 12/23/18 06:23 Creatinine 0.5 mg/dL (0.8-1.5) L 12/23/18 06:23 Estimated GFR > 60 ml/min 12/23/18 06:23 BUN/Creatinine Ratio 16 % 12/23/18 06:23 Glucose 88 mg/dL (75-100) 12/23/18 06:23 Lactic Acid 1.00 mmol/L (0.7-2.0) 12/22/18 05:59 Calcium 8.1 mg/dL (8.4-10.2) L 12/23/18 06:23 Total Bilirubin 0.90 mg/dL (0.1-1.2) 12/22/18 01:27 AST 16 units/L (5-40) 12/22/18 01:27 ALT 11 units/L (7-56) 12/22/18 01:27 Alkaline Phosphatase 59 units/L (35-129) 12/22/18 01:27 Total Creatine Kinase 83 units/L (55-170) 12/22/18 01:27 Troponin T < 0.010 ng/mL (0.00-0.029) 12/22/18 01:27 C-Reactive Protein 22.80 mg/dL (0.00-1.30) H 12/23/18 06:23 Total Protein 6.4 g/dL (6.3-8.2) 12/22/18 01:27 Albumin 4.0 g/dL (3.9-5) 12/22/18 01:27 Albumin/Globulin Ratio 1.7 % 12/22/18 01:27 Lipase 7 units/L (13-60) L 12/22/18 01:27 Urine Color Yellow (Yellow) 12/22/18 04:48 Urine Turbidity Clear (Clear) 12/22/18 04:48 Urine pH 7.0 (5.0-7.0) 12/22/18 04:48 Ur Specific [place] 1.021 (1.003-1.030) 12/22/18 04:48 Urine Protein 30 mg/dl mg/dL (Negative) 12/22/18 04:48 Urine Glucose (UA) Neg mg/dL (Negative) 12/22/18 04:48 Urine Ketones Neg mg/dL (Negative) 12/22/18 04:48 Urine Blood Neg (Negative) 12/22/18 04:48 Urine Nitrite Neg (Negative) 12/22/18 04:48 Urine Bilirubin Neg (Negative) 12/22/18 04:48 Urine Urobilinogen < 2.0 mg/dL (<2.0) 12/22/18 04:48 Ur Leukocyte Esterase Tr (Negative) 12/22/18 04:48 Urine WBC (Auto) < 1.0 /HPF (0.0-6.0) 12/22/18 04:48 Urine RBC (Auto) 1.0 /HPF (0.0-6.0) 12/22/18 04:48 U Epithel Cells (Auto) < 1.0 /HPF (0-13.0) 12/22/18 04:48 Urine Mucus Few /HPF 12/22/18 04:48
--- NOTE | 2018-12-24 14:42 | Discharge Summary ---
Providers - Providers Date of Admission: 12/22/18 03:52 Attending physician: BILLY HUGO MD 12/22/18 04:04 Consult to Physician [CONS] Routine Comment: Consulting Provider: DENISE VALENCIA Physician Instructions: Reason For Exam: colitis Primary care physician: STAN HSU MD Hospitalization Condition: Good Hospital course: 63-year-old man who presented with abdominal pain. He had imaging of his abdomen CONSISTENT with diffuse colitis. -He was seen by gastroenterology who agreed with treating her with antibiotics. He received antibiotics and pain meds, he improved, he was tolerating diet at time of discharge. Diagnoses Diffuse acute colitis Hypertension Obesity Chronic hypoxic respiratory failure on oxygen at all times Disposition: - TO HOME OR SELFCARE Time spent for discharge: 33 mins Core Measure Documentation - Palliative Care Palliative Care/ Comfort Measures: Not Applicable - Core Measures Any of the following diagnoses?: none Exam - Constitutional Vitals: Temp Pulse Resp BP Pulse Ox 97.9 F 76 17 145/74 93 12/24/18 05:13 12/24/18 05:13 12/24/18 07:00 12/24/18 05:13 12/24/18 05:13 General appearance: Present: no acute distress, well-nourished - EENT Eyes: Present: PERRL ENT: hearing intact, clear oral mucosa - Neck Neck: Present: supple, normal ROM - Respiratory Respiratory effort: normal Respiratory: bilateral: CTA - Cardiovascular Heart Sounds: Present: S1 & S2. Absent: rub, click - Extremities Extremities: pulses symmetrical, No edema Peripheral Pulses: within normal limits - Abdominal General gastrointestinal: Present: soft, non-tender, non-distended, normal bowel sounds Male genitourinary: Present: normal - Integumentary Integumentary: Present: clear, warm, dry - Musculoskeletal Musculoskeletal: gait normal, strength equal bilaterally - Psychiatric Psychiatric: appropriate mood/affect, intact judgment & insight - Neurologic Neurologic: CNII-XII intact, moves all extremities Plan Follow up with: STAN RUFF MD [Primary Care Provider] - 3-5 Days Prescriptions: Ciprofloxacin HCl [Ciprofloxacin TAB] 500 mg PO Q12H 5 Days tab RX: metroNIDAZOLE [Flagyl TAB] 500 mg PO Q8HR 5 Days tablet RX: oxyCODONE /ACETAMINOPHEN [Percocet 5/325 mg] 1 tab PO Q8H PRN #14 tablet PRN Reason: Pain, Moderate (4-6)
[2018-12-24 14:51] VITALS: BP 144/82
== END 2018-12-24 16:15 | disposition home or self-care (01) | DRG 872 ==
LOC: EDBD 01:03 → ED 01:03 → 3A 03:52
PROVIDERS: ADMIT Internal Medicine; ATTEND Internal Medicine
DX: A41.9 Sepsis, unspecified organism (principal); K52.9 Noninfective gastroenteritis and colitis, unspecified; R65.10 Systemic inflammatory response syndrome (SIRS) of non-infectious origin without acute organ dysfunction; I10 Essential (primary) hypertension; E66.9 Obesity, unspecified; I25.10 Atherosclerotic heart disease of native coronary artery without angina pectoris; F15.10 Other stimulant abuse, uncomplicated; Z82.49 Family history of ischemic heart disease and other diseases of the circulatory system; Z72.89 Other problems related to lifestyle; Z72.0 Tobacco use; Z68.38 Body mass index [BMI] 38.0-38.9, adult; Z95.5 Presence of coronary angioplasty implant and graft; Z71.3 Dietary counseling and surveillance
CPT/HCPCS: 36415; 71045; 74176; 76705; 80048; 80053; 81001; 82140; 82550; 83690; 84484; 85007; 85025; 85610; 85730; 86140; 87040; 87045; 87086; 93005; 93010; G0378; J1650; J1956; J2270; J2405; J7030; J7040

== ENCOUNTER 2019-02-25 16:35 | Emergency (ER) | payer OTHER ==
[2019-02-25 16:48] VITALS: BP 159/93
[2019-02-25] MEDS ORDERED: ASPIRIN PO ONE (16:48)
[2019-02-25 17:53] LABS: Basophils % (Auto) 0.3 % (0.0-1.8); Eosinophils # (Auto) 0.1 K/mm3 (0.0-0.4); Hematocrit 34.6 % (35.5-45.6); Hemoglobin 11.5 gm/dl (11.8-15.2); Lymphocytes # (Auto) 1.5 K/mm3 (1.2-5.4); Mean Corpuscular HGB Conc 33 % (32-34); Mean Corpuscular Volume 87 fl (84-94); Monocytes # (Auto) 0.7 K/mm3 (0.0-0.8); Monocytes % (Auto) 6.5 % (0.0-7.3); Platelet Count 294 K/mm3 (140-440); Red Cell Distribution Width 15.4 % (13.2-15.2)
[2019-02-25 18:11] LABS: BUN/Creatinine Ratio 19; Blood Urea Nitrogen 15 mg/dL (9-20); Calcium 8.5 mg/dL (8.4-10.2); Hemolysis Index 0
--- NOTE | 2019-02-25 18:16 | XRay Report ---
PROCEDURE: XR CHEST 1V AP TECHNIQUE: Frontal chest, one view HISTORY: Chest Pain COMPARISONS: 12/22/2018 AP portable chest with lordotic positioning FINDINGS: Scarlike tenting right diaphragm is more conspicuous on current frontal view without lordotic positio n but appears to have been present on comparison exam, with lordotic position. This likely reflects r ight lung base scarring. Stable healed bilateral rib and left clavicle fractures. Thoracic aorta changes may reflect atherosclerosis. Degenerative change in the thoracic spine. There is no pulmonary consolidation. No evidence of pleural effusion. No pneumothorax radiographically visible. Cardiac silhouette size is normal without vascular congestion. IMPRESSION: No radiographic evidence of definite acute cardiopulmonary disease in the visualized chest Healed fractures and likely stable scar right lung base This document is electronically signed by Davis Montelongo MD., February 25 2019 06:14:32 PM ET
== END 2019-02-25 22:05 | disposition left against medical advice (07) ==
LOC: ED 16:35
DX: R07.89 Other chest pain (principal); Z53.21 Procedure and treatment not carried out due to patient leaving prior to being seen by health care provider
CPT/HCPCS: 36415; 71045; 80048; 84484; 85025; 93005; 93010

== ENCOUNTER 2021-04-22 10:08 | Emergency (ER) | payer MEDICAID, OTHER ==
--- NOTE | 2021-04-22 11:49 | Emergency Department Report ---
ED General Adult HPI - General Chief complaint: Abdominal Pain Stated complaint: ABD PAIN, FEET SWELLING Time Seen by Provider: 04/22/21 10:50 Source: patient Mode of arrival: Ambulatory Limitations: No Limitations - History of Present Illness Initial comments: 66-year-old male patient with history of substance abuse and alcohol use presents to the emergency department with complaints of generalized abdominal pain, nausea, and constipation for 4 days. Patient has been using Methadone intermittently. Last alcohol intake was last night. No known sick contacts. No current steroid or antibiotic use. No recent travel. He was diagnosed with colitis a few years ago and states his current symptoms are reminiscent of this diagnosis. Denies fever, chills, vomiting, rectal bleeding, urinary symptoms. Denies all other complaints at this time. - Related Data Home Medications Medication Instructions Recorded Confirmed Last Taken Duloxetine HCl [DULoxetine] 30 mg PO BID 12/24/18 12/24/18 Unknown Previous Rx's Medication Instructions Recorded Last Taken Type Ciprofloxacin HCl [Ciprofloxacin 500 mg PO Q12H 5 Days tab 12/24/18 Unknown Rx TAB] metroNIDAZOLE [Flagyl TAB] 500 mg PO Q8HR 5 Days tablet 12/24/18 Unknown Rx oxyCODONE /ACETAMINOPHEN [Percocet 1 tab PO Q8H PRN #14 tablet 12/24/18 Unknown Rx 5/325 mg] Dicyclomine [Bentyl] 20 mg PO QID #20 bottle 04/22/21 Unknown Rx Allergies Allergy/AdvReac Type Severity Reaction Status Date / Time No Known Allergies Allergy Verified 02/25/19 16:37 ED Review of Systems ROS: Stated complaint: ABD PAIN, FEET SWELLING Other details as noted in HPI Other: GENERAL: Negative for fever, chills, weight change, anorexia, fatigue. ENT: Negative for ear pain, difficulty hearing, sore throat, nasal congestion, epistaxis. CARDIOVASCULAR: Positive for lower extremity swelling. PULMONARY: Negative for cough, dyspnea, wheezing, orthopnea, cyanosis. GASTROINTESTINAL: Positive for abdominal pain, nausea, constipation. MUSCULOSKELETAL: Negative for joint pain, joint swelling, myalgias, back pain, neck pain. NEUROLOGICAL: Negative for headache, seizure, syncope, paresthesias, weakness. INTEGUMENTARY: Negative for erythema, rash, diaphoresis, laceration, ecchymosis. HEMATOLOGICAL: Negative for hemoptysis, hematemesis, hematochezia, hematuria. PSYCHIATRIC: Negative for hallucinations, suicidal ideation, homicidal ideation, anxiety, depression. ED Past Medical Hx - Past Medical History Previous Medical History?: Yes Hx Hypertension: Yes Hx Heart Attack/AMI: Yes Hx Congestive Heart Failure: No Hx Diabetes: No Hx Deep Vein Thrombosis: No Hx Pulmonary Embolism: No Hx Liver Disease: No Hx Renal Disease: No Hx Sickle Cell Disease: No Hx Seizures: No Hx Kidney Stones: No Hx Asthma: No Hx COPD: No Hx Tuberculosis: No Hx HIV: No Additional medical history: Heroin use - Surgical History Past Surgical History?: Yes Hx Coronary Stent: Yes Hx Open Heart Surgery: Yes Hx Pacemaker: No Hx Cholecystectomy: No Hx Appendectomy: No - Social History Smoking Status: Current Every Day Smoker Substance Use Type: Alcohol - Medications Home Medications: Home Medications Medication Instructions Recorded Confirmed Last Taken Type Ciprofloxacin HCl [Ciprofloxacin 500 mg PO Q12H 5 Days tab 12/24/18 Unknown Rx TAB] Duloxetine HCl [DULoxetine] 30 mg PO BID 12/24/18 12/24/18 Unknown History metroNIDAZOLE [Flagyl TAB] 500 mg PO Q8HR 5 Days tablet 12/24/18 Unknown Rx oxyCODONE /ACETAMINOPHEN [Percocet 1 tab PO Q8H PRN #14 tablet 12/24/18 Unknown Rx 5/325 mg] Dicyclomine [Bentyl] 20 mg PO QID #20 bottle 04/22/21 Unknown Rx ED Physical Exam - General Limitations: No Limitations - Other Other exam information: General: Awake and alert. No acute distress. Chronically ill-appearing. Head: Atraumatic, normocephalic. Eyes: EOMI. Pupils are equal and round. Normal sclera and conjunctiva. ENT: Oral mucosa is moist. Normal pharyngeal exam. Neck: Supple. No lymphadenopathy. No JVD. Pulmonary: No respiratory distress. Clear to auscultation bilaterally. Cardiac: Regular rate and rhythm. Pulses are palpable and equal bilaterally. No lower extremity cyanosis or edema. Skin: Warm and dry. No rashes. Abdomen: Soft, non-tender, non-protuberant. No guarding, rigidity, or rebound. Bowel sounds are normal. No organomegaly or masses noted. Tortuous veins noted throughout the chest and abdomen. Hepatojugular reflux is absent. Back: Normal alignment. No CVA tenderness. Extremities: Symmetrical. Full range of motion intact. Neurological: Alert and oriented, appropriately interactive, no focal deficits. No asterixis. Psych: Cooperative. Appropriate mood and affect. Speech is evenly metered. Thoughts are logically construed. ED Course Vital Signs 04/22/21 04/22/21 10:14 19:55 Temperature 98.4 F Pulse Rate 59 L 63 Respiratory 20 18 Rate Blood Pressure 142/61 130/77 [Right] O2 Sat by Pulse 94 97 Oximetry ED Medical Decision Making - Lab Data Result diagrams: 04/22/21 12:11 04/22/21 12:11 - Radiology Data [facility] [address] [place] [address] Cat Scan Report Signed Patient: RIYA REDDY MR#: [id number] : 1955 Acct:[id number] Age/Sex: 66 / M ADM Date: 04/22/21 Loc: ED Attending Dr: Ordering Physician: LIA JACOB Date of Service: 04/22/21 Procedure(s): CT abdomen pelvis w con Accession Number(s): [id number] cc: LIA JACOB CT abdomen pelvis w con, CT chest w con INDICATION / CLINICAL INFORMATION: abd pain/nausea/constipation; hx feeding tube left upper lobe mass; CT recommended by radiology OMNI 300 60 ML. TECHNIQUE: All CT scans at this location are performed using CT dose reduction for ALARA by means of automated exposure control. COMPARISON: None available. FINDINGS: No significant parenchymal abnormality is seen in the lungs. There are old healed anterior rib fractures on the left accounting for the density seen on the chest x-ray. No mass is identified. Old healed right-sided rib fractures are also seen. No enlarged mediastinal or hilar lymph nodes are identified. In the abdomen, no free fluid is seen. Intra and extrahepatic biliary dilatation is identified. No mass or stone is seen in the distal common bile duct. Pancreatic duct is not dilated. The spleen, kidneys and adrenal glands are normal. No enlarged mesenteric or retroperitoneal lymph nodes are identified. Diffuse atherosclerotic changes present without evidence of an aneurysm. In the pelvis, no free fluid is seen. Bilateral inguinal hernias are present containing only fat. No enlarged lymph nodes are identified. The appendix is not well visualized. IMPRESSION: 1. Old healed anterior left rib fractures account for the density seen on the chest x-ray. No mass is identified. Old healed right rib fractures are also present 2. Intra and extra hepatic biliary dilatation without obvious mass or stone seen in the distal common bile duct. The presence of a small stone or small mass cannot be completely excluded. The pancreatic duct is not dilated 3. Bilateral inguinal hernias containing only fat 4. Diffuse atherosclerotic change without evidence of an aneurysm Signer Name: Faizan Reyna MD FACR Signed: 04/22/2021 2:45 PM Workstation Name: [id number] Transcribed By: MS Dictated By: Faizan Reyna MD Electronically Authenticated By: Faizan Reyna MD Signed Date/Time: 04/22/211444 DD/ 39 TD/TT: - Medical Decision Making Differential diagnosis including but not limited to: bowel obstruction, bowel perforation, pancreatitis, peptic ulcer disease, aortic aneurysm/dissection, cholecystitis, cholelithiasis, choledocholithiasis, ascending cholangitis, diverticulitis On reevaluation, patient remains stable. Repeat abdominal exam is benign. Labs unremarkable. Urine drug screen is positive for methadone and benzodiazepines. CT of the abdomen/pelvis shows hepatic biliary dilatation; small stone versus mass not definitively excluded. Ultrasound of the abdomen obtained for further evaluation. Care of patient transferred to Terri Cee PA-C for further evaluation and management pending ultrasound results. In the absence of clinically significant sonographic findings, anticipate patient will be discharged home. Prescriptions for symptomatic treatment prepared for the patient in anticipation of discharge home; however, surgical referral and/or consultation may be clinically indicated if ultrasound results are abnormal. Critical care attestation.: If time is entered above; I have spent that time in minutes in the direct care of this critically ill patient, excluding procedure time. ED Disposition Clinical Impression: Generalized abdominal pain Disposition: DC-01 TO HOME OR SELFCARE Is pt being admited?: No Does the pt Need Aspirin: No Condition: Stable Instructions: Abdominal Pain, Adult, [id number] Additional Instructions: Take Tylenol every 4 hours as needed for pain. Take Bentyl as directed for intestinal discomfort. Rest. Drink plenty of fluids. Follow-up with primary care provider this week. Call tomorrow to schedule an appointment. See referral information below. Return to the emergency department immediately for new or worsening symptoms. Prescriptions: Dicyclomine [Bentyl] 20 mg PO QID #20 bottle Referrals: LALO MORGAN MD [Staff Physician] - 3-5 Days [facility] [Provider Group] - 3-5 Days
--- NOTE | 2021-04-22 12:22 | XRay Report ---
CHEST 2 VIEWS INDICATION / CLINICAL INFORMATION: bilateral pitting edema. COMPARISON: 02/25/2019. FINDINGS: SUPPORT DEVICES: None. HEART / MEDIASTINUM: No significant abnormality. LUNGS / PLEURA: Stable tenting of the right diaphragm, likely representing area of scarring. Suspecte d left upper lobe density measuring up to 2.2 cm. No new focal pulmonary consolidation or edema. ADDITIONAL FINDINGS: Suspected remote healing fractures of the right lateral mid ribs, unchanged. IMPRESSION: Suspected left upper lobe density measuring up to 2.2 cm. The presence of an underlying mass or nodul e cannot be excluded. Recommend CT of the chest No evidence of acute focal pulmonary consolidation or edema. Stable tenting of the right hemidiaphragm, likely representing area of scarring. Signer Name: Chris Tariq MD Signed: 04/22/2021 12:17 PM Workstation Name: [id number]
[2021-04-22 12:56] LABS: Basophils % (Auto) 0.4 % (0.0-1.8); Eosinophils # (Auto) 0.2 K/mm3 (0.0-0.4); Eosinophils % (Auto) 2.3 % (0.0-4.3); Hematocrit 34.1 % (35.5-45.6); Hemoglobin 11.5 gm/dl (11.8-15.2); Lymphocytes # (Auto) 1.7 K/mm3 (1.2-5.4); Lymphocytes % (Auto) 20.7 % (13.4-35.0); Mean Corpuscular HGB Conc 34 % (32-34); Mean Corpuscular Volume 91 fl (84-94); Monocytes # (Auto) 0.5 K/mm3 (0.0-0.8); Monocytes % (Auto) 5.9 % (0.0-7.3); Platelet Count 257 K/mm3 (140-440); Red Blood Count 3.74 M/mm3 (3.65-5.03); Red Cell Distribution Width 17.4 % (13.2-15.2)
[2021-04-22 12:58] LABS: INR 1.07 (0.87-1.13)
[2021-04-22 12:59] LABS: Partial Thromboplastin Time 29.5 Sec. (24.2-36.6)
[2021-04-22 13:04] LABS: Calcium 9.3 mg/dL (8.4-10.2)
[2021-04-22 13:53] LABS: Bilirubin,Urine NEG (Negative); Blood,Urine NEG (Negative); Color,Urine Yellow (Yellow); Mucus,Urine FEW /HPF
[2021-04-22 14:00] LABS: Amphetamine Screen,Urine Negative; Cannabinoid Screen,Urine Negative; Cocaine Screen,Urine Negative; Opiate Screen,Urine Negative
[2021-04-22 14:22] LABS: Benzodiazepines Screen,Urine Positive; Methadone Screen,Urine Positive
--- NOTE | 2021-04-22 14:50 | Cat Scan Report ---
CT abdomen pelvis w con, CT chest w con INDICATION / CLINICAL INFORMATION: abd pain/nausea/constipation; hx feeding tube left upper lobe mass; CT recommended by radiology OMNI 300 60 ML. TECHNIQUE: All CT scans at this location are performed using CT dose reduction for ALARA by means of automated e xposure control. COMPARISON: None available. FINDINGS: No significant parenchymal abnormality is seen in the lungs. There are old healed anterior rib fractu res on the left accounting for the density seen on the chest x-ray. No mass is identified. Old healed right-sided rib fractures are also seen. No enlarged mediastinal or hilar lymph nodes are identified . In the abdomen, no free fluid is seen. Intra and extrahepatic biliary dilatation is identified. No ma ss or stone is seen in the distal common bile duct. Pancreatic duct is not dilated. The spleen, kidne ys and adrenal glands are normal. No enlarged mesenteric or retroperitoneal lymph nodes are identifie d. Diffuse atherosclerotic changes present without evidence of an aneurysm. In the pelvis, no free fluid is seen. Bilateral inguinal hernias are present containing only fat. No enlarged lymph nodes are identified. The appendix is not well visualized. IMPRESSION: 1. Old healed anterior left rib fractures account for the density seen on the chest x-ray. No mass is identified. Old healed right rib fractures are also present 2. Intra and extra hepatic biliary dilatation without obvious mass or stone seen in the distal common bile duct. The presence of a small stone or small mass cannot be completely excluded. The pancreatic duct is not dilated 3. Bilateral inguinal hernias containing only fat 4. Diffuse atherosclerotic change without evidence of an aneurysm Signer Name: Faizan Reyna MD FACR Signed: 04/22/2021 2:45 PM Workstation Name: [email or web address]
--- NOTE | 2021-04-22 19:10 | Ultrasound Report ---
. ULTRASOUND ABDOMEN, COMPLETE INDICATION: hepatobiliary dilatation; stone vs. mass COMPARISON: CT earlier today. FINDINGS: Pancreas: Normal. Abdominal Aorta: Normal. IVC: Normal. Liver: Normal. Gallbladder: Normal. Bile ducts: Common duct is dilated. Common Bile Duct measures 15 mm. Right Kidney: Normal. Left Kidney: Normal. Spleen: Normal. Free fluid: None. Additional Findings: None. IMPRESSION: 1. Common duct dilatation at 15 mm. No choledocholithiasis or gallstones. 2. The adjunct communications faculty member reported a positive sonographic Lehman sign; however, no gallstones or pericholecy stic fluid. Signer Name: Eduin Llanes MD Signed: 04/22/2021 7:06 PM Workstation Name: [id number]
[2021-04-22 20:19] VITALS: BP 130/77
== END 2021-04-22 19:55 | disposition home or self-care (01) ==
LOC: ED 10:08
DX: R10.84 Generalized abdominal pain (principal); I10 Essential (primary) hypertension; I25.2 Old myocardial infarction; F17.200 Nicotine dependence, unspecified, uncomplicated; Z79.899 Other long term (current) drug therapy
CPT/HCPCS: 36415; 71046; 71260; 74177; 76700; 80053; 80307; 81001; 82140; 83690; 83735; 83880; 85025; 85610; 85730; 87086; 99284; Q9967; 80320; G0480

== ENCOUNTER 2021-04-27 18:13 | Emergency (ER) | payer MEDICAID ==
[2021-04-27 18:30] VITALS: BP 128/71
== END 2021-04-27 18:30 | disposition left against medical advice (07) ==
LOC: ED 18:13
DX: F41.0 Panic disorder [episodic paroxysmal anxiety] (principal); Z53.21 Procedure and treatment not carried out due to patient leaving prior to being seen by health care provider

== ENCOUNTER 2021-05-02 12:36 | Emergency (ER) | payer MEDICAID ==
[2021-05-02 14:38] LABS: Calcium 8.7 mg/dL (8.4-10.2)
[2021-05-02 14:42] LABS: Bilirubin,Urine NEG (Negative); Blood,Urine NEG (Negative); Color,Urine Yellow (Yellow); Hyaline Casts,Urine 18 /LPF; Protein,Urine <15 mg/dL mg/dL (Negative); RBC,Urine < 1.0 /HPF (0.0-6.0); Urobilinogen,Urine < 2.0 mg/dL (<2.0)
[2021-05-02 14:54] LABS: Basophils % (Auto) 0.3 % (0.0-1.8); Eosinophils % (Auto) 0.3 % (0.0-4.3); Hematocrit 37.3 % (35.5-45.6); Hemoglobin 12.6 gm/dl (11.8-15.2); Lymphocytes # (Auto) 1.1 K/mm3 (1.2-5.4); Mean Corpuscular HGB Conc 34 % (32-34); Mean Corpuscular Volume 92 fl (84-94); Monocytes # (Auto) 0.4 K/mm3 (0.0-0.8); Monocytes % (Auto) 3.8 % (0.0-7.3); Platelet Count 248 K/mm3 (140-440); Red Blood Count 4.06 M/mm3 (3.65-5.03); Red Cell Distribution Width 17.2 % (13.2-15.2)
[2021-05-02] MEDS ORDERED: SODIUM CHLORIDE 0.9% 1000 ML 1,000 ML IV ONE ×2 (15:43→15:59)
[2021-05-02] MEDS ORDERED: ALUM-MAG HYDROXIDE-SIMETHICONE 200-200-20MG/5ML ORAL LIQD 30 ML PO ONE (15:59)
[2021-05-02 16:36] VITALS: BP 138/47
[2021-05-02 16:43] LABS: INR 1.04 (0.87-1.13)
[2021-05-02 16:44] LABS: Partial Thromboplastin Time 26.2 Sec. (24.2-36.6)
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
== END 2021-05-02 19:37 | disposition home or self-care (01) ==
LOC: ED 12:36
DX: N17.9 Acute kidney failure, unspecified (principal); K83.8 Other specified diseases of biliary tract; E86.0 Dehydration; R10.11 Right upper quadrant pain; I10 Essential (primary) hypertension; I25.2 Old myocardial infarction; Z98.890 Other specified postprocedural states; Z79.2 Long term (current) use of antibiotics; Z79.899 Other long term (current) drug therapy
CPT/HCPCS: 36415; 74176; 80053; 81001; 83690; 85025; 85610; 85730; 96360; 99284; J7030; 80320; 93005; G0480

== ENCOUNTER 2021-05-02 22:09 | Emergency (ER) | payer MEDICAID ==
[2021-05-02 23:25] VITALS: BP 111/46
--- NOTE | 2021-05-08 10:49 | Electrocardiograph Report ---
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
== END 2021-05-02 23:23 | disposition left against medical advice (07) ==
LOC: ED 22:09
DX: R07.89 Other chest pain (principal); Z53.21 Procedure and treatment not carried out due to patient leaving prior to being seen by health care provider
CPT/HCPCS: 93005

== ENCOUNTER 2021-05-04 13:15 | Emergency (ER) | payer MEDICAID ==
[2021-05-04 14:12] VITALS: BP 114/60
[2021-05-04 15:31] LABS: Basophils % (Auto) 0.4 % (0.0-1.8); Eosinophils # (Auto) 0.1 K/mm3 (0.0-0.4); Eosinophils % (Auto) 1.6 % (0.0-4.3); Hematocrit 36.3 % (35.5-45.6); Hemoglobin 12.3 gm/dl (11.8-15.2); Lymphocytes # (Auto) 1.5 K/mm3 (1.2-5.4); Lymphocytes % (Auto) 18.1 % (13.4-35.0); Mean Corpuscular HGB Conc 34 % (32-34); Mean Corpuscular Volume 93 fl (84-94); Monocytes # (Auto) 0.4 K/mm3 (0.0-0.8); Monocytes % (Auto) 4.4 % (0.0-7.3); Platelet Count 215 K/mm3 (140-440); Red Blood Count 3.92 M/mm3 (3.65-5.03); Red Cell Distribution Width 16.7 % (13.2-15.2)
[2021-05-04 15:43] LABS: BUN/Creatinine Ratio 14; Blood Urea Nitrogen 13 mg/dL (9-20); Calcium 8.4 mg/dL (8.4-10.2); Hemolysis Index 11
== END 2021-05-04 19:00 | disposition left against medical advice (07) ==
LOC: ED 13:15
DX: K30 Functional dyspepsia (principal); Z53.21 Procedure and treatment not carried out due to patient leaving prior to being seen by health care provider
CPT/HCPCS: 36415; 80048; 80320; 85025; G0480

== ENCOUNTER 2021-06-02 18:05 | Emergency (ER) | payer MEDICAID ==
[2021-06-02 21:37] LABS: Basophils % (Auto) 0.4 % (0.0-1.8); Eosinophils % (Auto) 0.5 % (0.0-4.3); Hematocrit 42.3 % (35.5-45.6); Hemoglobin 14.3 gm/dl (11.8-15.2); Lymphocytes # (Auto) 1.6 K/mm3 (1.2-5.4); Lymphocytes % (Auto) 21.8 % (13.4-35.0); Mean Corpuscular HGB Conc 34 % (32-34); Mean Corpuscular Volume 95 fl (84-94); Monocytes # (Auto) 0.4 K/mm3 (0.0-0.8); Monocytes % (Auto) 5.4 % (0.0-7.3); Platelet Count 166 K/mm3 (140-440); Red Blood Count 4.46 M/mm3 (3.65-5.03); Red Cell Distribution Width 17.7 % (13.2-15.2)
[2021-06-02 22:01] LABS: Alanine Aminotransferase 17 units/L (7-56); Albumin 4.2 g/dL (3.9-5); BUN/Creatinine Ratio 14; Blood Urea Nitrogen 13 mg/dL (9-20); Calcium 9.2 mg/dL (8.4-10.2); Hemolysis Index 11
--- NOTE | 2021-06-02 23:34 | XRay Report ---
CHEST 2 VIEWS INDICATION / CLINICAL INFORMATION: chest pain. COMPARISON: 04/22/21 FINDINGS: SUPPORT DEVICES: None. HEART / MEDIASTINUM: No significant abnormality. LUNGS / PLEURA: No significant pulmonary or pleural abnormality. Scarring along the right hemidiaphra gm is unchanged. ADDITIONAL FINDINGS: Heel bilateral rib fractures and left clavicle fracture are unchanged. IMPRESSION: 1. No acute findings. No change. Signer Name: Efren Santillan MD Signed: 06/02/2021 11:29 PM Workstation Name: [id number]
[2021-06-03 08:20] VITALS: BP 147/85
--- NOTE | 2021-06-03 12:15 | Event Note ---
ED Screening Note Date of service: 06/03/21 Time: 12:14 ED Screening Note: 66-year-old male that I had the pleasure of seeing before comes in stating he wants to get in rehab. Patient is here for medical clearance and urinalysis and UDS is pending. This initial assessment/diagnostic orders/clinical plan/treatment(s) is/are subject to change based on patients health status, clinical progression and re- assessment by fellow clinical providers in the ED. Further treatment and workup at subsequent clinical providers discretion. Patient/guardian urged not to elope from the ED as their condition may be serious if not clinically assessed and managed. Initial orders include:
[2021-06-03 12:30] LABS: Amphetamine Screen,Urine Negative; Cannabinoid Screen,Urine Negative; Cocaine Screen,Urine Negative; Opiate Screen,Urine Negative
[2021-06-03 12:50] LABS: Benzodiazepines Screen,Urine PRESUMPTIVE POSITIVE; Methadone Screen,Urine PRESUMPTIVE POSITIVE
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
--- NOTE | 2021-06-03 18:08 | Electrocardiograph Report ---
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
== END 2021-06-03 16:22 | disposition home or self-care (01) ==
LOC: EDUNIT# → ED 18:05
DX: F10.20 Alcohol dependence, uncomplicated (principal); I10 Essential (primary) hypertension; F17.200 Nicotine dependence, unspecified, uncomplicated; Z98.890 Other specified postprocedural states
CPT/HCPCS: 36415; 71046; 80053; 80307; 84484; 85025; 93005; 99284

== ENCOUNTER 2021-08-07 15:05 | Emergency (ER) | payer MEDICAID ==
[2021-08-07 15:17] VITALS: BP 115/61
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
[2021-08-07 16:59] LABS: Alanine Aminotransferase 13 units/L (7-56); Albumin 3.9 g/dL (3.9-5); BUN/Creatinine Ratio 19; Blood Urea Nitrogen 17 mg/dL (9-20); Calcium 9.4 mg/dL (8.4-10.2); Hemolysis Index 6
--- NOTE | 2021-08-07 17:22 | Vascular Lab Report ---
DUPLEX DOPPLER LOWER EXTREMITY VEINS, BILATERAL INDICATION / CLINICAL INFORMATION: bilateral LE pain. TECHNIQUE: Duplex doppler imaging was performed through the veins of both lower extremities using venous christie cathleen and other maneuvers. COMPARISON: None available. FINDINGS: RIGHT COMMON FEMORAL VEIN: Negative. RIGHT FEMORAL VEIN: Negative. RIGHT POPLITEAL VEIN: Negative. RIGHT CALF VEINS: Negative. LEFT COMMON FEMORAL VEIN: Negative. LEFT FEMORAL VEIN: Negative. LEFT POPLITEAL VEIN: Negative. LEFT CALF VEINS: Negative. ADDITIONAL FINDINGS: None. IMPRESSION: 1. No sonographic evidence for DVT in either lower extremity. Signer Name: Zander Barron MD Signed: 08/07/2021 5:18 PM Workstation Name: [id number]
[2021-08-07 17:35] LABS: Basophils % (Auto) 0.3 % (0.0-1.8); Eosinophils # (Auto) 0.2 K/mm3 (0.0-0.4); Eosinophils % (Auto) 2.7 % (0.0-4.3); Hematocrit 36.4 % (35.5-45.6); Lymphocytes # (Auto) 1.1 K/mm3 (1.2-5.4); Lymphocytes % (Auto) 18.8 % (13.4-35.0); Mean Corpuscular HGB Conc 33 % (32-34); Mean Corpuscular Volume 90 fl (84-94); Monocytes # (Auto) 0.4 K/mm3 (0.0-0.8); Monocytes % (Auto) 7.1 % (0.0-7.3); Platelet Count 169 K/mm3 (140-440); Red Blood Count 4.04 M/mm3 (3.65-5.03); Red Cell Distribution Width 18.8 % (13.2-15.2)
== END 2021-08-07 18:24 | disposition home or self-care (01) ==
LOC: ED 15:05
DX: M79.605 Pain in left leg (principal); M79.604 Pain in right leg; I10 Essential (primary) hypertension; F17.200 Nicotine dependence, unspecified, uncomplicated; F10.20 Alcohol dependence, uncomplicated
CPT/HCPCS: 36415; 80053; 85025; 93970; 99284

== ENCOUNTER 2022-04-11 11:10 | Emergency (ER) | payer MEDICARE, MEDICAID ==
[2022-04-11 11:19] VITALS: BP 144/68
--- NOTE | 2022-04-11 12:35 | XRay Report ---
CHEST 2 VIEWS INDICATION / CLINICAL INFORMATION: Dyspnea. COMPARISON: 08/25/2021 FINDINGS: SUPPORT DEVICES: None. HEART / MEDIASTINUM: Stable. LUNGS / PLEURA: Chronic pleural-parenchymal opacity along the lateral right lung base, unchanged. Chr onic appearing interstitial opacities bilaterally, also unchanged. No acute focal airspace consolidat ion. No significant effusion. No pneumothorax. ADDITIONAL FINDINGS: No significant additional findings. IMPRESSION: 1. No acute findings. 2. Chronic findings as above, unchanged compared to reference. Signer Name: Robert Daley MD Signed: 04/11/2022 12:31 PM Workstation Name: [id number]
[2022-04-11 14:36] LABS: Basophils % (Auto) 0.5 % (0.0-1.8); Eosinophils # (Auto) 0.2 K/mm3 (0.0-0.4); Eosinophils % (Auto) 2.4 % (0.0-4.3); Hematocrit 32.3 % (35.5-45.6); Hemoglobin 10.7 gm/dl (11.8-15.2); Lymphocytes # (Auto) 1.4 K/mm3 (1.2-5.4); Lymphocytes % (Auto) 17.1 % (13.4-35.0); Mean Corpuscular HGB Conc 33 % (32-34); Mean Corpuscular Volume 89 fl (84-94); Monocytes # (Auto) 0.9 K/mm3 (0.0-0.8); Monocytes % (Auto) 10.2 % (0.0-7.3); Platelet Count 251 K/mm3 (140-440); Red Blood Count 3.63 M/mm3 (3.65-5.03); Red Cell Distribution Width 17.3 % (13.2-15.2)
[2022-04-11 14:41] LABS: Alanine Aminotransferase 9 units/L (7-56); Albumin 3.9 g/dL (3.9-5); BUN/Creatinine Ratio 15; Blood Urea Nitrogen 15 mg/dL (9-20); Calcium 8.6 mg/dL (8.4-10.2); Hemolysis Index 3
[2022-04-11 14:43] LABS: INR 1.05 (0.87-1.13)
[2022-04-11 14:44] LABS: Partial Thromboplastin Time 30.8 Sec. (24.2-36.6)
--- NOTE | 2022-04-12 21:31 | Electrocardiograph Report ---
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
== END 2022-04-12 01:00 | disposition left against medical advice (07) ==
LOC: ED 11:10
DX: M79.89 Other specified soft tissue disorders (principal); Z53.21 Procedure and treatment not carried out due to patient leaving prior to being seen by health care provider
CPT/HCPCS: 36415; 71046; 80053; 83880; 84484; 85025; 85610; 85730; 93005

== ENCOUNTER 2022-05-01 15:38 | Emergency (ER) | payer MEDICAID, MEDICARE ==
[2022-05-01 15:44] VITALS: BP 129/65
--- NOTE | 2022-05-02 13:21 | Electrocardiograph Report ---
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 Electronically Signed On 05-02-2022 13:21:33 EDT by Kyle Stephenson
== END 2022-05-01 20:00 | disposition left against medical advice (07) ==
LOC: ED 15:38
DX: R07.9 Chest pain, unspecified (principal); Z53.21 Procedure and treatment not carried out due to patient leaving prior to being seen by health care provider
CPT/HCPCS: 93005

== ENCOUNTER 2022-05-03 09:49 | Emergency (ER) | payer MEDICARE ==
[2022-05-03 09:51] VITALS: BP 138/74
[2022-05-03 11:03] LABS: Basophils % (Auto) 0.2 % (0.0-1.8); Eosinophils % (Auto) 0.1 % (0.0-4.3); Hematocrit 34.3 % (35.5-45.6); Hemoglobin 11.3 gm/dl (11.8-15.2); Lymphocytes # (Auto) 0.9 K/mm3 (1.2-5.4); Mean Corpuscular HGB Conc 33 % (32-34); Mean Corpuscular Volume 88 fl (84-94); Monocytes # (Auto) 0.8 K/mm3 (0.0-0.8); Monocytes % (Auto) 7.3 % (0.0-7.3); Platelet Count 263 K/mm3 (140-440); Red Blood Count 3.92 M/mm3 (3.65-5.03); Red Cell Distribution Width 17.3 % (13.2-15.2)
[2022-05-03 11:12] LABS: BUN/Creatinine Ratio 22; Blood Urea Nitrogen 22 mg/dL (9-20); Calcium 8.8 mg/dL (8.4-10.2); Hemolysis Index 6
--- NOTE | 2022-05-04 13:19 | Electrocardiograph Report ---
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
== END 2022-05-03 18:29 | disposition left against medical advice (07) ==
LOC: ED 09:49
DX: R07.9 Chest pain, unspecified (principal); Z53.21 Procedure and treatment not carried out due to patient leaving prior to being seen by health care provider
CPT/HCPCS: 36415; 80048; 80320; 85025; 93005; G0480

== ENCOUNTER 2022-05-06 17:50 | Inpatient (IN) | payer MEDICARE ==
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
--- NOTE | 2022-05-07 08:06 | XRay Report ---
CHEST 2 VIEWS INDICATION / CLINICAL INFORMATION: WEAKNESS. COMPARISON: 04/11/2022 FINDINGS: SUPPORT DEVICES: None. HEART / MEDIASTINUM: Stable borderline heart size. LUNGS / PLEURA: Slightly prominent interstitium is again seen and unchanged. No consolidation, large pleural effusion or pneumothorax has developed. ADDITIONAL FINDINGS: Chronic bilateral rib deformities are again noted. IMPRESSION: 1. No acute change since 04/11/2022. Mild chronic interstitial changes in both lungs. Borderline heart size. Signer Name: Edin Jacob Jr, MD Signed: 05/07/2022 8:01 AM Workstation Name: [id number]
[2022-05-07 08:25] LABS: Hematocrit 31.7 % (35.5-45.6); Hemoglobin 10.1 gm/dl (11.8-15.2); Mean Corpuscular HGB Conc 32 % (32-34); Mean Corpuscular Volume 87 fl (84-94); Platelet Count 353 K/mm3 (140-440); Red Blood Count 3.64 M/mm3 (3.65-5.03)
[2022-05-07 08:49] LABS: Alanine Aminotransferase 30 units/L (7-56); Albumin 3.1 g/dL (3.9-5); BUN/Creatinine Ratio 23; Blood Urea Nitrogen 82 mg/dL (9-20); Calcium 8.1 mg/dL (8.4-10.2); Hemolysis Index 14
--- NOTE | 2022-05-07 10:22 | Cat Scan Report ---
CT ABDOMEN AND PELVIS WITHOUT CONTRAST HISTORY: abdominal pain COMPARISON: 08/26/2021 TECHNIQUE: Axial CT images were obtained through the abdomen and pelvis without IV contrast. Sagittal and coronal reformatted images. All CT scans at this location are performed using CT dose reduction for ALARA by means of automated exposure control. FINDINGS: CT ABDOMEN: Lung Bases: Clear. Liver: No significant abnormality. Biliary: The common bile duct remains mildly dilated up to 11 mm but no obvious obstructing lesion is demonstrated. No intrahepatic biliary dilatation is appreciated. The gallbladder is unremarkable. Th adelfo findings are unchanged since the previous exam. Spleen: No significant abnormality. Unenlarged. Pancreas: No significant abnormality. Adrenals: Stable partially calcified/nodular right adrenal gland. Normal left adrenal gland. Kidneys: No significant abnormality. Lymphatics: No lymphadenopathy. Vasculature: Moderate atherosclerotic plaques in the aorta and iliac arteries without acute abnormali ty. Bowel/Peritoneum: No significant abnormality. No free air. No free fluid. Normal appendix. CT PELVIS: : The bladder is markedly distended but no obvious bladder mass or wall abnormality. The prostate g land is normal size. Osseous Structures: There are multiple bilateral chronic lower rib fractures. Moderate thoracolumbar spondylosis. No evidence for fracture or suspicious bony lesion. Additional Findings: None IMPRESSION: Distended bladder. Correlate for bladder outlet obstruction. No acute inflammatory process is appreciated. Dilated common bile duct without evidence of cholelithiasis or choledocholithiasis. This is unchanged since the previous exam. Stable nodularity and calcifications in the right adrenal gland which may be posttraumatic in nature. Other chronic incidental findings which are unchanged since 08/26/2021. Signer Name: Edin Jacob Jr, MD Signed: 05/07/2022 10:17 AM Workstation Name: [id number]
[2022-05-07 11:36] LABS: Bilirubin,Urine Negative (Negative); Blood,Urine Large (Negative); Color,Urine Yellow (Yellow); Protein,Urine <30 mg dL mg/dL (Negative)
[2022-05-07 11:37] LABS: Urobilinogen,Urine < 2.0 mg/dL (<2.0)
[2022-05-07 11:44] LABS: Hyaline Casts,Urine 4 /LPF; Mucus,Urine 2+ /HPF
[2022-05-07 11:45] LABS: RBC,Urine > 182.0 /HPF (0.0-6.0)
[2022-05-07] MEDS ORDERED: SODIUM CHLORIDE 0.9% 1000 ML 1,000 ML IV ONE (11:46)
[2022-05-07] MEDS ORDERED: cefTRIAXone/NS 1 GM/50 ML 1 GM/50 ML BAG IV ONE (11:46)
[2022-05-08] MEDS ORDERED: cefTRIAXone/NS 1 GM/50 ML 1 GM/50 ML BAG IV ONE ×2 (07:29→10:00)
[2022-05-08] MEDS ORDERED: SODIUM CHLORIDE 0.9% 1000 ML 1,000 ML IV ONE (07:31)
--- NOTE | 2022-05-08 07:39 | Emergency Department Report ---
Blank Doc - Documentation Documentation: 67-year-old male currently up for discharge but awaiting case management dispo sition was reevaluated by myself. Upon lab review patient has diagnosis of UTI and Dehydration. He received 1 dose of Rocephin yesterday. He has leukocytosis and acute renal failure (new since recent lab work 4 days prior). BUN to creatinine ratio suggest dehydration he received 1 L of normal saline yesterday. I evaluated patient at the bedside. Patient is sleepy but easily arousable. Drinking water at the bedside. Expresses that he has not been provided food since his ED stay. Patient is alert and oriented x3. States he called EMS because both his feet "got stuck". 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 He also has decreased left foot plantar flexion strength compared to the right. Sensation grossly intact. Patient states he has had weakness for least 1 week that has been progressively getting worse. He states he is unable able to ambulate at this time. I feel that patient requires admission to the hospital due to these acute issues. He does have a history of alcohol abuse but states he has not had alcohol in 1 month. No signs of alcohol withdrawal tremors at time my examination. Patient also states he was in methadone clinic up until a week and a half ago. He is recently mated to [facility]. As per chart review patient has has been triage here May 01 and May 03 with complaints of chest pain, had protocol labs drawn, but left before MD evaluation. Patient informed that his salicylate level was elevated 3 days ago but denies intentional salicylate overdose. This could also be contributing to acute renal failure Additional work-up has been ordered Repeat CBC, BMP, salicylate level, magnesium, CK, UDS Additional dose of IV Rocephin and IV fluids/normal saline at 200 mL/h x 1 L Banana bag at 250 mL/h CT head noncontrast to evaluate for evidence of subacute stroke or hemorrhage Consult placed to mower mechanic Dr Devine, consult ordered Patient was straight cath yesterday with 500 mL of urine noted as per midlevel provider chart Urinary catheter placed by RN with 800 mL of urine output. He is very difficult to get a accurate history from the patient. He denies urinary incontinence and states the bed is wet because he spilled water on the bed. CT head/brain wo con, CT cervical spine wo con INDICATION / CLINICAL INFORMATION: 67 years Male; left sided weakness x 1 week. TECHNIQUE: Routine CT head without contrast. All CT scans at this location are performed using CT dose reduction for ALARA by means of automated exposure control. COMPARISON: 08/26/2021 FINDINGS: BRAIN / INTRACRANIAL CONTENTS: No acute hemorrhage, mass effect, midline shift, hydrocephalus, or acute, large territorial infarct. Mild cerebral and cerebellar atrophy. There are mild areas of decreased attenuation in the white matter of the cerebral hemispheres. These are nonspecific findings and may be related to microangiopathy (hypertension, diabetes, atherosclerosis), given the patient's age. It might be difficult to evaluate for small areas of ischemia without diffusion imaging by MRI. CRANIOCERVICAL JUNCTION: No significant abnormality. ORBITS: No significant abnormality of visualized orbits. SINUSES / MASTOIDS: Visualized paranasal sinuses and mastoid air cells are essentially clear. ADDITIONAL FINDINGS: Atherosclerotic disease is seen in the anterior and posterior circulation. IMPRESSION: 1. No acute intracranial abnormality. 2. Volume loss and chronic white matter changes, unchanged since 08/26/2021. CT CERVICAL SPINE WITHOUT CONTRAST INDICATION: left sided weakness x 1 week. TECHNIQUE: Axial imaging performed through the cervical spine without the use of contrast. Sagittal and coronal reconstructed images were also reviewed. All CT scans at this location are performed using CT dose reduction for ALARA by means of automated exposure control. COMPARISON: None FINDINGS: Alignment: Spinal alignment is normal. There is straightening of the normal lordosis. Bones: There is no acute osseous abnormality. Mild discogenic DJD is identified at C5-6. Mild to moderate bilateral neural foraminal narrowing is present at this level. Mild discogenic DJD is identified at C6-7. The remaining levels are within normal limits. The facet joints are unremarkable. Chronic appearing bilateral rib fractures are identified bilaterally at levels 1 and 2. Soft tissues: No acute or significant incidental soft tissue abnormality. IMPRESSION: No acute abnormality. Mild cervical spondylosis which is most pronounced at C5-6. No acute findings noted on imaging exam. Patient reexamined several times in the department and has bilateral lower extremity weakness however, there is a definite increased weakness on the left compared to the right. Patient may also be having a component of urinary retention therefore Kim catheter placed in the ED. Repeat blood work is pending at time of disposition but has been ordered and collected. Patient was transferred from [facility] to main side. case d/w with Dr Castaneda hospitalist will admit Diagnosis include: UTI, acute renal failure, salicylate poisoning, dehydration, left-sided weakness, urinary retention, history of methadone use Repeat labs today show improving leukocytosis with worsening further elevation in BUN and creatinine
[2022-05-08] MEDS ORDERED: THIAMINE 100 MG, FOLIC ACID 1 MG, MULTIPLE VITAMIN INJ, ADULT 10 ML in SODIUM CHLORIDE ... IV ONE (09:00)
--- NOTE | 2022-05-08 09:05 | Cat Scan Report ---
CT head/brain wo con, CT cervical spine wo con INDICATION / CLINICAL INFORMATION: 67 years Male; left sided weakness x 1 week. TECHNIQUE: Routine CT head without contrast. All CT scans at this location are performed using CT dos e reduction for ALARA by means of automated exposure control. COMPARISON: 08/26/2021 FINDINGS: BRAIN / INTRACRANIAL CONTENTS: No acute hemorrhage, mass effect, midline shift, hydrocephalus, or acu te, large territorial infarct. Mild cerebral and cerebellar atrophy. There are mild areas of decreased attenuation in the white matter of the cerebral hemispheres. These are nonspecific findings and may be related to microangiopathy (hypertension, diabetes, atheroscleros is), given the patient's age. It might be difficult to evaluate for small areas of ischemia without d iffusion imaging by MRI. CRANIOCERVICAL JUNCTION: No significant abnormality. ORBITS: No significant abnormality of visualized orbits. SINUSES / MASTOIDS: Visualized paranasal sinuses and mastoid air cells are essentially clear. ADDITIONAL FINDINGS: Atherosclerotic disease is seen in the anterior and posterior circulation. IMPRESSION: 1. No acute intracranial abnormality. 2. Volume loss and chronic white matter changes, unchanged since 08/26/2021. CT CERVICAL SPINE WITHOUT CONTRAST INDICATION: left sided weakness x 1 week. TECHNIQUE: Axial imaging performed through the cervical spine without the use of contrast. Sagittal and coronal reconstructed images were also reviewed. All CT scans at this location are performed us ing CT dose reduction for ALARA by means of automated exposure control. COMPARISON: None FINDINGS: Alignment: Spinal alignment is normal. There is straightening of the normal lordosis. Bones: There is no acute osseous abnormality. Mild discogenic DJD is identified at C5-6. Mild to mo derate bilateral neural foraminal narrowing is present at this level. Mild discogenic DJD is identifi ed at C6-7. The remaining levels are within normal limits. The facet joints are unremarkable. Chroni c appearing bilateral rib fractures are identified bilaterally at levels 1 and 2. Soft tissues: No acute or significant incidental soft tissue abnormality. IMPRESSION: No acute abnormality. Mild cervical spondylosis which is most pronounced at C5-6. Signer Name: Edin Jacob Jr, MD Signed: 05/08/2022 9:00 AM Workstation Name: [id number]
[2022-05-08 10:04] LABS: Basophils % (Auto) 0.1 % (0.0-1.8); Eosinophils % (Auto) 0.3 % (0.0-4.3); Hematocrit 30.9 % (35.5-45.6); Lymphocytes # (Auto) 0.9 K/mm3 (1.2-5.4); Lymphocytes % (Auto) 6.9 % (13.4-35.0); Mean Corpuscular HGB Conc 33 % (32-34); Mean Corpuscular Volume 87 fl (84-94); Monocytes # (Auto) 0.6 K/mm3 (0.0-0.8); Monocytes % (Auto) 4.8 % (0.0-7.3); Platelet Count 325 K/mm3 (140-440); Red Blood Count 3.57 M/mm3 (3.65-5.03); Red Cell Distribution Width 17.8 % (13.2-15.2)
[2022-05-08 10:25] LABS: Calcium 8.1 mg/dL (8.4-10.2)
[2022-05-08] MEDS ORDERED: ONDANSETRON 4 MG/2 ML INJ IV PRN (10:38)
--- NOTE | 2022-05-08 15:04 | History and Physical Report ---
History of Present Illness Date of examination: 05/08/22 Date of admission: 05/08/22 10:38 Chief complaint: "I feel like crap" History of present illness: Patient is a 67-year-old male with history of hypertension, type 2 diabetes, methadone for the past opiate abuse, and hyperlipidemia who presented to the emergency department with nonspecific complaints. Per chart review and conversation with ED physician, patient has been seen over the last week in the ED for several reasons. It was noted that the patient has had increased creatinine with each visit and a peak salicylate level of 42.5. Repeat labs today notable for WBC 13.6, SCR 4.2, K 3.2, Mg 3.10, and salicylate level 22.6. Patient is a poor historian and denies taking any medications or over-the- counter NSAIDs for the last 3 weeks. He has a history of reported alcohol abuse but denies using alcohol in the last 3 weeks. His only complaint is generalized body pains and hunger. He is unsure if he has had any recent trauma or falls. He denies headache, chest pain, shortness of breath, recent fevers, chills ,night sweats or extended period of time in the extreme heat. Repeat salicylate level today is 10.4 and CK is 2524. Patient was admitted for salicylate toxicity and [place]. CT head and cervical spine were negative for acute process/fractures. CT of abdomen pelvis showed a distended bladder, but no other acute etiology. Nephrology was consulted in the emergency department and the patient was admitted for further care. Past History Past Medical History: diabetes, hypertension, hyperlipidemia Past Surgical History: No surgical history Social history: alcohol abuse, prescription drug abuse Family history: no significant family history Medications and Allergies Allergies Allergy/AdvReac Type Severity Reaction Status Date / Time No Known Allergies Allergy Verified 05/03/22 09:51 Home Medications Medication Instructions Recorded Confirmed Last Taken Type levoFLOXacin [Levaquin TAB] 500 mg PO QDAY #7 tablet 05/10/22 Unknown Rx oxyCODONE /ACETAMINOPHEN [Percocet 1 tab PO Q8H PRN #14 tablet 05/10/22 Unknown Rx 5/325 mg] Active Meds: Active Medications Acetaminophen (Acetaminophen 325 Mg Tab) 650 mg PO Q4H PRN PRN Reason: Pain MILD(1-3)/Fever >100.5/QUARLES Heparin Sodium (Porcine) (Heparin 5,000 Unit/1 Ml Vial) 5,000 unit SUB-Q Q12HR LORENZO Sodium Chloride (Nacl 0.9% 1000 Ml) 1,000 mls @ 125 mls/hr IV DIRECT LORENZO Morphine Sulfate (Morphine 4 Mg/1 Ml Inj) 4 mg IV Q4H PRN PRN Reason: Pain , Severe (7-10) Ondansetron HCl (Ondansetron 4 Mg/2 Ml Inj) 4 mg IV Q8H PRN PRN Reason: Nausea And Vomiting Oxycodone/Acetaminophen (Oxycodone /Acetaminophen 5-325mg Tab) 1 tab PO Q6H PRN PRN Reason: Pain, Moderate (4-6) Sodium Chloride (Sodium Chloride 0.9% 10 Ml Flush Syringe) 10 ml IV BID LORENZO Sodium Chloride (Sodium Chloride 0.9% 10 Ml Flush Syringe) 10 ml IV PRN PRN PRN Reason: LINE FLUSH Review of Systems Constitutional: weakness, malaise, no weight loss, no weight gain, no fever, no chills, no sweats Ears, nose, mouth and throat: deferred Cardiovascular: high blood pressure, no chest pain, no palpitations, no syncope, no lightheadedness, no dyspnea on exertion Respiratory: no cough, no shortness of breath, no pain on inspiration, no home oxygen Gastrointestinal: no abdominal pain, no nausea, no vomiting, no diarrhea, no loss of appetite Genitourinary Male: no dysuria, no urinary frequency, no incontinence Musculoskeletal: muscle weakness, muscle cramps, myalgias, no frequent falls Integumentary: deferred Neurological: gait dysfunction, no head injury, no tingling, no seizures, no memory loss, no loss of vision Endocrine: polyphagia, excessive thirst Exam - Physical Exam Narrative exam: GENERAL: Well-developed well-nourished. In no acute distress. HEENT: Normocephalic. Atraumatic. NECK: Supple. CHEST/LUNGS: CTAB on room air HEART/CARDIOVASCULAR: RRR. No murmur, rubs or gallops appreciated. ABDOMEN: +BS. NT/ND. SKIN: No rashes noted. NEURO: Unable to perform due to patient refusal to cooperate MUSCULOSKELETAL: No joint effusion EXTREMITIES: No cyanosis, clubbing or edema. PSYCH: Cooperative. - Constitutional Vitals: Temp Pulse Resp BP Pulse Ox 97.9 F 57 L 12 122/65 98 05/07/22 06:07 05/07/22 23:01 05/07/22 23:01 05/07/22 23:01 05/07/22 21:31 HEART Score - HEART Score Troponin: Troponin T < 0.010 ng/mL (0.00-0.029) 05/07/22 08:01 Results - Labs CBC & Chem 7: 05/10/22 02:59 05/10/22 02:59 Labs: Laboratory Last Values WBC 13.6 K/mm3 (4.5-11.0) H 05/08/22 08:21 RBC 3.57 M/mm3 (3.65-5.03) L 05/08/22 08:21 Hgb 10.0 gm/dl (11.8-15.2) L 05/08/22 08:21 Hct 30.9 % (35.5-45.6) L 05/08/22 08:21 MCV 87 fl (84-94) 05/08/22 08:21 MCH 28 pg (28-32) 05/08/22 08:21 MCHC 33 % (32-34) 05/08/22 08:21 RDW 17.8 % (13.2-15.2) H 05/08/22 08:21 Plt Count 325 K/mm3 (140-440) 05/08/22 08:21 Lymph % (Auto) 6.9 % (13.4-35.0) L 05/08/22 08:21 [place] % (Auto) 4.8 % (0.0-7.3) 05/08/22 08:21 Eos % (Auto) 0.3 % (0.0-4.3) 05/08/22 08:21 Baso % (Auto) 0.1 % (0.0-1.8) 05/08/22 08:21 Lymph # (Auto) 0.9 K/mm3 (1.2-5.4) L 05/08/22 08:21 [place] # (Auto) 0.6 K/mm3 (0.0-0.8) 05/08/22 08:21 Eos # (Auto) 0.0 K/mm3 (0.0-0.4) 05/08/22 08:21 Baso # (Auto) 0.0 K/mm3 (0.0-0.1) 05/08/22 08:21 Seg Neutrophils % 87.9 % (40.0-70.0) H 05/08/22 08:21 Seg Neutrophils # 12.0 K/mm3 (1.8-7.7) H 05/08/22 08:21 Sodium 131 mmol/L (137-145) L 05/08/22 08:21 Potassium 3.2 mmol/L (3.6-5.0) L 05/08/22 08:21 Chloride 91.4 mmol/L (98-107) L 05/08/22 08:21 Carbon Dioxide 18 mmol/L (22-30) L 05/08/22 08:21 Anion Gap 25 mmol/L 05/08/22 08:21 BUN 101 mg/dL (9-20) H 05/08/22 08:21 Creatinine 4.2 mg/dL (0.8-1.3) H 05/08/22 08:21 Estimated GFR 14 ml/min 05/08/22 08:21 BUN/Creatinine Ratio 24 % 05/08/22 08:21 Glucose 73 mg/dL (75-100) L 05/08/22 08:21 POC Glucose 87 mg/dL (70-105) 05/07/22 04:22 Calcium 8.1 mg/dL (8.4-10.2) L 05/08/22 08:21 Magnesium 3.10 mg/dL (1.7-2.3) H 05/08/22 08:21 Total Bilirubin 0.20 mg/dL (0.1-1.2) 05/07/22 08:01 AST 75 units/L (5-40) H 05/07/22 08:01 ALT 30 units/L (7-56) 05/07/22 08:01 Alkaline Phosphatase 100 units/L (35-129) 05/07/22 08:01 Total Creatine Kinase 2524 units/L (55-170) H 05/08/22 08:21 Troponin T < 0.010 ng/mL (0.00-0.029) 05/07/22 08:01 Total Protein 7.1 g/dL (6.3-8.2) 05/07/22 08:01 Albumin 3.1 g/dL (3.9-5) L 05/07/22 08:01 Albumin/Globulin Ratio 0.8 % 05/07/22 08:01 Urine Color Yellow (Yellow) 05/07/22 Unknown Urine Turbidity Slightly cloudy (Clear) 05/07/22 Unknown Urine pH 5.0 (5.0-7.0) 05/07/22 Unknown Ur Specific [place] 1.025 (1.003-1.030) 05/07/22 Unknown Urine Protein <30 mg dl mg/dL (Negative) 05/07/22 Unknown Urine Glucose (UA) Negative mg/dL (Negative) 05/07/22 Unknown Urine Ketones Negative mg/dL (Negative) 05/07/22 Unknown Urine Blood Large (Negative) A 05/07/22 Unknown Urine Nitrite Negative (Negative) 05/07/22 Unknown Urine Bilirubin Negative (Negative) 05/07/22 Unknown Urine Urobilinogen < 2.0 mg/dL (<2.0) 05/07/22 Unknown Ur Leukocyte Esterase Negative (Negative) 05/07/22 Unknown Urine WBC (Auto) 29.0 /HPF (0.0-6.0) H 05/07/22 Unknown Urine RBC (Auto) > 182.0 /HPF (0.0-6.0) 05/07/22 Unknown U Epithel Cells (Auto) 2.0 /HPF (0-13.0) 05/07/22 Unknown Hyaline Casts 4 /LPF 05/07/22 Unknown Urine Mucus 2+ /HPF 05/07/22 Unknown Salicylates 10.4 mg/dL (2.8-20.0) 05/08/22 08:21 Acetaminophen 5.0 ug/mL (10.0-30.0) L 05/07/22 08:01 Plasma/Serum Alcohol < 0.01 % (0-0.07) 05/07/22 08:01 Assessment and Plan Assessment and plan: #Acute kidney injury -SCr 3.5 -> 4.2 -will start IVFs -likely secondary to ATN vs volume depletion -avoid nephrotoxins, renally dose medications -Nephrology consulted in the ED, assistance appreciated #Rhabdomyolysis -CK 2524 -Etiology unknown -Continue IV fluids and will trend CK levels #Metabolic acidosis #Salicylate toxicity-improving -Lactate level ordered #Volume depletion -Continue IV fluids #Microscopic hematuria -seen on UA -follow up outpatient #Hypokalemia #Hypermagnesemia -We will replete and monitor -Hypermagnesemia likely secondary to KAMILLE #Generalized weakness -PT consulted -likely secondary to rhabdomyolysis vs KAMILLE #Advanced care planning -Disease education conducted, care plan discussed, diagnoses discussed, prognosis discussed, and patient acknowledges understanding with care plan -Time: +30 min #Discharge planning -PT ordered/CM consulted for discharge planning Advance Directives: No VTE prophylaxis?: Mechanical Plan of care discussed with patient/family: Yes
--- NOTE | 2022-05-08 17:50 | Electrocardiograph Report ---
[facility] Test Date: 2022-05-07 Test Time: 12:20:38 Pat Name: RIYA REDDY Department: Room: A367 Gender: M Skill Training Program Coordinator: GHAZALA : 1955 Requested By: ESMER CANO Order Number: [id number] Reading MD: Eduardo Wilkins Measurements Intervals [place] Rate: 61 P: 20 FL: 160 QRS: 60 QRSD: 126 T: -2 QT: 467 QTc: 471 Interpretive Statements Very poor quality ECG Sinus rhythm Nonspecific T wave changes Compared to ECG 05/03/2022 09:54:53 No significant change Electronically Signed On 05-08-2022 17:49:40 EDT by Eduardo Wilkins
--- NOTE | 2022-05-08 17:53 | Electrocardiograph Report ---
[facility] Test Date: 2022-05-07 Test Time: 22:25:41 Pat Name: RIYA REDDY Department: Room: A367 1 Gender: M Therapeutic Specialist: JUAN CARLOS : 1955 Requested By: ANY SIMENTAL Order Number: [id number] Reading MD: Eduardo Wilkins Measurements Intervals [place] Rate: 60 P: -8 TN: 176 QRS: 66 QRSD: 121 T: -10 QT: 456 QTc: 455 Interpretive Statements Sinus rhythm Nonspecific intraventricular conduction delay Compared to ECG 05/07/2022 12:20:38 No significant changes Electronically Signed On 05-08-2022 17:52:27 EDT by Eduardo Wilkins
--- NOTE | 2022-05-08 17:54 | Ultrasound Report ---
ULTRASOUND RENAL INDICATION / CLINICAL INFORMATION: KAMILLE. COMPARISON: None available. FINDINGS: RIGHT KIDNEY: Length = 11.9 cm. - Echogenicity: Normal. - Cortical Thickness: Normal. - Hydronephrosis: None. - Cyst or mass: No significant abnormality. - Stones: None seen. LEFT KIDNEY: Length = 11.4 cm. - Echogenicity: Normal. - Cortical Thickness: Normal. - Hydronephrosis: None. - Cyst or mass: No significant abnormality. - Stones: None seen. URINARY BLADDER: No significant abnormality. FREE FLUID: None. ADDITIONAL FINDINGS: None. IMPRESSION: 1. No significant abnormality. Signer Name: Antoine Martinez MD Signed: 05/08/2022 5:50 PM Workstation Name: [id number]
--- NOTE | 2022-05-08 18:59 | Consultation ---
History of Present Illness - Reason for Consult Consult date: 05/08/22 acute renal failure, hyponatremia, hypokalemia - History of Present Illness This is a 67-year-old man who has reportedly been presenting to the ER every other day for the past several weeks due to generalized feeling of illness. Lab work obtained in the ER was concerning for acute kidney injury and electrolyte derangements. Nephrology was consulted for further management. Patient states that he does not regularly follow up with a physician and therefore his medical history is unknown. He denies history of kidney stones or family history of kidney disease. He denies hematuria, dysuria, decreased urine output and urinary retention. Medications and Allergies Allergies Allergy/AdvReac Type Severity Reaction Status Date / Time No Known Allergies Allergy Verified 05/03/22 09:51 Home Medications Medication Instructions Recorded Confirmed Last Taken Type oxyCODONE /ACETAMINOPHEN [Percocet 1 tab PO Q8H PRN #14 tablet 12/24/18 05/08/22 Unknown Rx 5/325 mg] Active Meds: Active Medications Acetaminophen (Acetaminophen 325 Mg Tab) 650 mg PO Q4H PRN PRN Reason: Pain MILD(1-3)/Fever >100.5/QUARLES Heparin Sodium (Porcine) (Heparin 5,000 Unit/1 Ml Vial) 5,000 unit SUB-Q Q12HR LORENZO Sodium Chloride (Nacl 0.9% 1000 Ml) 1,000 mls @ 125 mls/hr IV DIRECT LORENZO Morphine Sulfate (Morphine 4 Mg/1 Ml Inj) 4 mg IV Q4H PRN PRN Reason: Pain , Severe (7-10) Ondansetron HCl (Ondansetron 4 Mg/2 Ml Inj) 4 mg IV Q8H PRN PRN Reason: Nausea And Vomiting Oxycodone/Acetaminophen (Oxycodone /Acetaminophen 5-325mg Tab) 1 tab PO Q6H PRN PRN Reason: Pain, Moderate (4-6) Sodium Chloride (Sodium Chloride 0.9% 10 Ml Flush Syringe) 10 ml IV BID LORENZO Sodium Chloride (Sodium Chloride 0.9% 10 Ml Flush Syringe) 10 ml IV PRN PRN PRN Reason: LINE FLUSH Review of Systems All systems: negative Constitutional: fatigue, weakness Exam - Vital Signs Vital signs: Vital Signs Temp Pulse Resp BP Pulse Ox 98.1 F 98 H 14 153/85 95 05/06/22 18:05 05/06/22 18:05 05/06/22 18:05 05/06/22 18:05 05/06/22 18:05 - Physical Exam Narrative exam: General: No acute distress HEENT: Oral mucosa moist Neck: Supple, no JVD Chest: Clear to auscultation bilaterally Heart: RRR, S1 and S2, no pericardial rub Abdomen: Soft, nontender, no renal bruit Extremity: No peripheral cyanosis, edema Neurological: Alert, awake, no asterixis Dermatology: No skin rash Psych: No agitation Musculoskeletal: No joint effusion Results - Lab Results 05/08/22 08:21 05/08/22 08:21 Most recent lab results Calcium 8.1 mg/dL (8.4-10.2) L 05/08/22 08:21 Magnesium 3.10 mg/dL (1.7-2.3) H 05/08/22 08:21 Assessment and Plan Acute kidney injury Acidosis Hyponatremia Hypokalemia Hypochloremia Anemia Ultrasound unremarkable Urinalysis noted, check culture and serologies Start IVF Renally dose medications Avoid nephrotoxins Renal diet
[2022-05-08] MEDS: HEPARIN 5,000 UNIT/1 ML VIAL SUB-Q SCH (23:25)
[2022-05-08] MEDS: MORPHINE 4 MG/1 ML INJ IV PRN (23:27)
[2022-05-08] MEDS: SODIUM CHLORIDE 0.9% 1000 ML 1,000 ML IV SCH (23:33)
[2022-05-09 01:13] LABS: Creatinine,Urine 51.2 mg/dL (0.1-20.0)
[2022-05-09 01:18] LABS: Amphetamine Screen,Urine PRESUMPTIVE NEGATIVE; Benzodiazepines Screen,Urine PRESUMPTIVE POSITIVE; Cannabinoid Screen,Urine PRESUMPTIVE NEGATIVE; Cocaine Screen,Urine PRESUMPTIVE NEGATIVE; Methadone Screen,Urine PRESUMPTIVE NEGATIVE; Opiate Screen,Urine PRESUMPTIVE NEGATIVE
[2022-05-09] MEDS: MORPHINE 4 MG/1 ML INJ IV PRN ×3 (04:12→16:56)
[2022-05-09] MEDS: SODIUM CHLORIDE 0.9% 1000 ML 1,000 ML IV SCH (06:36)
[2022-05-09 06:46] LABS: Albumin 2.5 g/dL (3.9-5); Calcium 7.8 mg/dL (8.4-10.2)
[2022-05-09 08:30] LABS: Mean Corpuscular HGB Conc 32 % (32-34); Mean Corpuscular Volume 87 fl (84-94); Platelet Count 312 K/mm3 (140-440); Red Blood Count 3.21 M/mm3 (3.65-5.03); Red Cell Distribution Width 17.5 % (13.2-15.2)
[2022-05-09] MEDS ORDERED: POTASSIUM CHLORIDE ER 20 MEQ TAB PO ONE ×4 (08:39→15:39)
--- NOTE | 2022-05-09 08:52 | Progress Note ---
History Interval history: This is a 67-year-old man who has reportedly been presenting to the ER every other day for the past several weeks due to generalized feeling of illness. Lab work obtained in the ER was concerning for acute kidney injury and electrolyte derangements. Nephrology was consulted for further management. Patient states that he does not regularly follow up with a physician and therefore his medical history is unknown. He denies history of kidney stones or family history of kidney disease. He denies hematuria, dysuria, decreased urine output and urinary retention. The patient was admitted with diagnosis below Acute kidney injury secondary to vasomotor nephropathy/dehydration mild rhabdomyolysis Metabolic acidosis Hyponatremia Hypokalemia Hypomagnesia Hypochloremia Anemia 05/09/2022. Hypokalemia has worsened. We will replete potassium and follow-up BMP. Kidney function has improved significantly with a creatinine from 4.2 to 1.6. Continue IV fluid hydration and follow-up creatinine in a.m. CK levels ret urning to normal limits Hospitalist Physical - Constitutional Vitals: Temp Pulse Resp BP Pulse Ox 98 F 63 17 109/58 96 05/08/22 23:47 05/08/22 23:47 05/09/22 00:38 05/08/22 23:47 05/09/22 00:38 HEART Score - HEART Score Troponin: Troponin T < 0.010 ng/mL (0.00-0.029) 05/07/22 08:01 Results - Labs CBC & Chem 7: 05/08/22 08:21 05/09/22 06:03 Labs: Laboratory Last Values WBC 13.6 K/mm3 (4.5-11.0) H 05/08/22 08:21 RBC 3.57 M/mm3 (3.65-5.03) L 05/08/22 08:21 Hgb 10.0 gm/dl (11.8-15.2) L 05/08/22 08:21 Hct 30.9 % (35.5-45.6) L 05/08/22 08:21 MCV 87 fl (84-94) 05/08/22 08:21 MCH 28 pg (28-32) 05/08/22 08:21 MCHC 33 % (32-34) 05/08/22 08:21 RDW 17.8 % (13.2-15.2) H 05/08/22 08:21 Plt Count 325 K/mm3 (140-440) 05/08/22 08:21 Lymph % (Auto) 6.9 % (13.4-35.0) L 05/08/22 08:21 [place] % (Auto) 4.8 % (0.0-7.3) 05/08/22 08:21 Eos % (Auto) 0.3 % (0.0-4.3) 05/08/22 08:21 Baso % (Auto) 0.1 % (0.0-1.8) 05/08/22 08:21 Lymph # (Auto) 0.9 K/mm3 (1.2-5.4) L 05/08/22 08:21 [place] # (Auto) 0.6 K/mm3 (0.0-0.8) 05/08/22 08:21 Eos # (Auto) 0.0 K/mm3 (0.0-0.4) 05/08/22 08:21 Baso # (Auto) 0.0 K/mm3 (0.0-0.1) 05/08/22 08:21 Seg Neutrophils % 87.9 % (40.0-70.0) H 05/08/22 08:21 Seg Neutrophils # 12.0 K/mm3 (1.8-7.7) H 05/08/22 08:21 Sodium 136 mmol/L (137-145) L 05/09/22 06:03 Potassium 2.9 mmol/L (3.6-5.0) L* 05/09/22 06:03 Chloride 102.3 mmol/L (98-107) 05/09/22 06:03 Carbon Dioxide 20 mmol/L (22-30) L 05/09/22 06:03 Anion Gap 17 mmol/L 05/09/22 06:03 BUN 71 mg/dL (9-20) H 05/09/22 06:03 Creatinine 1.6 mg/dL (0.8-1.3) H D 05/09/22 06:03 Estimated GFR 44 ml/min 05/09/22 06:03 BUN/Creatinine Ratio 44 % 05/09/22 06:03 Glucose 79 mg/dL (75-100) 05/09/22 06:03 POC Glucose 87 mg/dL (70-105) 05/07/22 04:22 Lactic Acid 0.60 mmol/L (0.7-2.0) L 05/08/22 23:26 Calcium 7.8 mg/dL (8.4-10.2) L 05/09/22 06:03 Magnesium 3.10 mg/dL (1.7-2.3) H 05/08/22 08:21 Total Bilirubin 0.20 mg/dL (0.1-1.2) 05/09/22 06:03 AST 49 units/L (5-40) H 05/09/22 06:03 ALT 27 units/L (7-56) 05/09/22 06:03 Alkaline Phosphatase 73 units/L (35-129) 05/09/22 06:03 Total Creatine Kinase 936 units/L (55-170) H 05/09/22 06:03 Troponin T < 0.010 ng/mL (0.00-0.029) 05/07/22 08:01 Total Protein 6.1 g/dL (6.3-8.2) L 05/09/22 06:03 Albumin 2.5 g/dL (3.9-5) L 05/09/22 06:03 Albumin/Globulin Ratio 0.7 % 05/09/22 06:03 Urine Color Yellow (Yellow) 05/07/22 Unknown Urine Turbidity Slightly cloudy (Clear) 05/07/22 Unknown Urine pH 5.0 (5.0-7.0) 05/07/22 Unknown Ur Specific [place] 1.025 (1.003-1.030) 05/07/22 Unknown Urine Protein <30 mg dl mg/dL (Negative) 05/07/22 Unknown Urine Glucose (UA) Negative mg/dL (Negative) 05/07/22 Unknown Urine Ketones Negative mg/dL (Negative) 05/07/22 Unknown Urine Blood Large (Negative) A 05/07/22 Unknown Urine Nitrite Negative (Negative) 05/07/22 Unknown Urine Bilirubin Negative (Negative) 05/07/22 Unknown Urine Urobilinogen < 2.0 mg/dL (<2.0) 05/07/22 Unknown Ur Leukocyte Esterase Negative (Negative) 05/07/22 Unknown Urine WBC (Auto) 29.0 /HPF (0.0-6.0) H 05/07/22 Unknown Urine RBC (Auto) > 182.0 /HPF (0.0-6.0) 05/07/22 Unknown U Epithel Cells (Auto) 2.0 /HPF (0-13.0) 05/07/22 Unknown Hyaline Casts 4 /LPF 05/07/22 Unknown Urine Mucus 2+ /HPF 05/07/22 Unknown Urine Creatinine 51.2 mg/dL (0.1-20.0) H 05/09/22 00:14 Urine Sodium 41 mmol/L 05/09/22 00:14 Salicylates 10.4 mg/dL (2.8-20.0) 05/08/22 08:21 Urine Opiates Screen Presumptive negative 05/09/22 00:14 Urine Methadone Screen Presumptive negative 05/09/22 00:14 Acetaminophen 5.0 ug/mL (10.0-30.0) L 05/07/22 08:01 Ur Barbiturates Screen Presumptive negative 05/09/22 00:14 Ur Phencyclidine Scrn Presumptive negative 05/09/22 00:14 Ur Amphetamines Screen Presumptive negative 05/09/22 00:14 U Benzodiazepines Scrn Presumptive positive 05/09/22 00:14 Urine Cocaine Screen Presumptive negative 05/09/22 00:14 U Marijuana (THC) Screen Presumptive negative 05/09/22 00:14 Drugs of Abuse Note Disclamer 05/09/22 00:14 Plasma/Serum Alcohol < 0.01 % (0-0.07) 05/07/22 08:01 Hep Bs Antigen Non-reactive (Negative) 05/08/22 20:48 Hepatitis C Antibody Non-reactive (NonReactive) 05/08/22 20:48 Microbiology: Microbiology 05/07/22 Unknown Urine,Clean Catch Urine Culture - Preliminary NO GROWTH AFTER 24 HOURS Kim/IV: Voiding Method Indwelling Catheter Active Medications - Current Medications Current Medications: Generic Name Dose Route Start Last Admin Trade Name Freq PRN Reason Stop Dose Admin Acetaminophen 650 mg 05/08/22 10:38 Acetaminophen 325 Mg Tab PO Q4H PRN Pain MILD(1-3)/Fever >100.5/QUARLES Heparin Sodium (Porcine) 5,000 unit 05/08/22 22:00 05/08/22 23:25 Heparin 5,000 Unit/1 Ml Vial SUB-Q 5,000 unit Q12HR LORENZO Administration Sodium Chloride 1,000 mls @ 125 mls/hr 05/08/22 11:30 05/09/22 06:36 Nacl 0.9% 1000 Ml IV 125 mls/hr DIRECT LORENZO Administration Morphine Sulfate 4 mg 05/08/22 10:38 05/09/22 04:12 Morphine 4 Mg/1 Ml Inj IV 4 mg Q4H PRN Administration Pain , Severe (7-10) Ondansetron HCl 4 mg 05/08/22 10:38 Ondansetron 4 Mg/2 Ml Inj IV Q8H PRN Nausea And Vomiting Oxycodone/Acetaminophen 1 tab 05/08/22 10:38 Oxycodone /Acetaminophen 5-325mg Tab PO Q6H PRN Pain, Moderate (4-6) Sodium Chloride 10 ml 05/08/22 22:00 05/08/22 23:27 Sodium Chloride 0.9% 10 Ml Flush Syringe IV 10 ml BID LORENZO Administration Sodium Chloride 10 ml 05/08/22 10:38 Sodium Chloride 0.9% 10 Ml Flush Syringe IV PRN PRN LINE FLUSH
[2022-05-09 10:11] LABS: Eosinophils % (Auto) 0.5 % (0.0-4.3); Monocytes # (Auto) 0.6 K/mm3 (0.0-0.8); Monocytes % (Auto) 6.3 % (0.0-7.3)
[2022-05-09] MEDS: HEPARIN 5,000 UNIT/1 ML VIAL SUB-Q SCH ×2 (11:35→21:40)
[2022-05-09 12:56] LABS: Basophils % (Manual) 0 % (0.0-1.8); Total Cells Counted 100
[2022-05-09 12:57] LABS: Platelet Estimate Consistent w Auto; RBC Morphology Normal
--- NOTE | 2022-05-09 17:22 | Progress Note ---
Assessment and Plan Acute kidney injury, cr 3.5-->4.2-->1.6 Acidosis Hyponatremia Hypokalemia Hypochloremia Anemia Ultrasound unremarkable Urinalysis noted, check serologies, culture NGTD Continue IVF Renally dose medications Avoid nephrotoxins Renal diet Subjective Date of service: 05/09/22 Principal diagnosis: KAMILLE Interval history: Resting in bed. Sleeping but easily awakened on visit. Objective - Exam Narrative Exam: General: No acute distress HEENT: Oral mucosa moist Neck: Supple, no JVD Chest: Clear to auscultation bilaterally Heart: RRR, S1 and S2, no pericardial rub Abdomen: Soft, nontender, no renal bruit Extremity: No peripheral cyanosis, edema Neurological: Alert, awake, no asterixis Dermatology: No skin rash Psych: No agitation Musculoskeletal: No joint effusion - Vital Signs Vital signs: Vital Signs - 12hr 05/09/22 05/09/22 11:16 11:30 Temperature 97.6 F Pulse Rate 56 L Respiratory 18 Rate Blood Pressure 149/67 O2 Sat by Pulse 97 99 Oximetry - Lab 05/09/22 06:03 05/09/22 06:03 Most recent lab results Calcium 7.8 mg/dL (8.4-10.2) L 05/09/22 06:03 Magnesium 3.10 mg/dL (1.7-2.3) H 05/08/22 08:21 Urine Creatinine 51.2 mg/dL (0.1-20.0) H 05/09/22 00:14 Urine Sodium 41 mmol/L 05/09/22 00:14 Medications & Allergies - Medications Allergies/Adverse Reactions: Allergies No Known Allergies Allergy (Verified 05/03/22 09:51) Home Medications: Home Medications Medication Instructions Recorded Confirmed Last Taken Type oxyCODONE /ACETAMINOPHEN [Percocet 1 tab PO Q8H PRN #14 tablet 12/24/18 05/08/22 Unknown Rx 5/325 mg] Active Medications: Generic Name Dose Route Start Last Admin Trade Name Freq PRN Reason Stop Dose Admin Acetaminophen 650 mg 05/08/22 10:38 Acetaminophen 325 Mg Tab PO Q4H PRN Pain MILD(1-3)/Fever >100.5/QUARLES Heparin Sodium (Porcine) 5,000 unit 05/08/22 22:00 05/09/22 11:35 Heparin 5,000 Unit/1 Ml Vial SUB-Q 5,000 unit Q12HR LORENZO Administration Sodium Chloride 1,000 mls @ 125 mls/hr 05/08/22 11:30 05/09/22 06:36 Nacl 0.9% 1000 Ml IV 125 mls/hr DIRECT LORENZO Administration Morphine Sulfate 4 mg 05/08/22 10:38 05/09/22 16:56 Morphine 4 Mg/1 Ml Inj IV 4 mg Q4H PRN Administration Pain , Severe (7-10) Ondansetron HCl 4 mg 05/08/22 10:38 Ondansetron 4 Mg/2 Ml Inj IV Q8H PRN Nausea And Vomiting Oxycodone/Acetaminophen 1 tab 05/08/22 10:38 Oxycodone /Acetaminophen 5-325mg Tab PO Q6H PRN Pain, Moderate (4-6) Sodium Chloride 10 ml 05/08/22 22:00 05/09/22 11:36 Sodium Chloride 0.9% 10 Ml Flush Syringe IV 10 ml BID LORENZO Administration Sodium Chloride 10 ml 05/08/22 10:38 Sodium Chloride 0.9% 10 Ml Flush Syringe IV PRN PRN LINE FLUSH
[2022-05-09] MEDS: oxyCODONE /ACETAMINOPHEN 5-325MG TAB PO PRN (21:39)
[2022-05-09] MEDS ORDERED: ALPRAZolam 0.5 MG TAB PO ONE (21:40)
[2022-05-10 05:09] LABS: Hematocrit 28.7 % (35.5-45.6); Hemoglobin 9.3 gm/dl (11.8-15.2); Mean Corpuscular HGB Conc 33 % (32-34); Mean Corpuscular Volume 86 fl (84-94); Platelet Count 324 K/mm3 (140-440); Red Blood Count 3.34 M/mm3 (3.65-5.03); Red Cell Distribution Width 17.5 % (13.2-15.2)
[2022-05-10 05:29] LABS: BUN/Creatinine Ratio 45; Blood Urea Nitrogen 36 mg/dL (9-20); Calcium 7.8 mg/dL (8.4-10.2); Hemolysis Index 2
[2022-05-10] MEDS: oxyCODONE /ACETAMINOPHEN 5-325MG TAB PO PRN ×3 (05:58→15:45)
[2022-05-10] MEDS: SODIUM CHLORIDE 0.9% 1000 ML 1,000 ML IV SCH (05:59)
[2022-05-10 06:51] LABS: Total Cells Counted 100
[2022-05-10 06:52] LABS: Anisocytosis 1+; Basophils % (Manual) 0 % (0.0-1.8); Eosinophils % (Manual) 0 % (0.0-4.3); Platelet Estimate Consistent w Auto
--- NOTE | 2022-05-10 09:45 | Discharge Summary ---
Providers - Providers Date of Admission: 05/08/22 10:38 Date of discharge: 05/10/22 Attending physician: KELLEN COOK 05/08/22 07:39 Consult to Physician [CONS] Urgent Comment: Consulting Provider: DESTINY BOWLING Physician Instructions: Reason For Exam: acute renal failure 05/08/22 12:35 Physical Therapy Evaluation and Treat [CONS] Routine Comment: Reason For Exam: generalized weakness 05/08/22 12:36 Consult to Case Management [CONS] Routine Services Needed at Discharge: Other Notified:: cm Additional Physician Instructions: discharge planning 05/08/22 16:04 Physical Therapy Evaluation and Treat [CONS] Stat Comment: Eval and Treat Reason For Exam: Physical Therapy Primary care physician: LALO MORGAN Hospitalization Reason for admission: [place] Condition: Stable Hospital course: This is a 67-year-old man who has reportedly been presenting to the ER every other day for the past several weeks due to generalized feeling of illness. Lab work obtained in the ER was concerning for acute kidney injury and electrolyte derangements. Nephrology was consulted for further management. Patient stated that he does not regularly follow up with a physician and therefore his medical history is unknown. He denies history of kidney stones or family history of kidney disease. He denied hematuria, dysuria, decreased urine output and urinary retention. The patient was admitted with diagnosis below Acute kidney injury secondary to obstructive uropathy mild rhabdomyolysis Metabolic acidosis Hyponatremia Hypokalemia Hypomagnesia Hypochloremia Anemia 05/09/2022. Hypokalemia has worsened. We will replete potassium and follow-up BMP. Kidney function has improved significantly with a creatinine from 4.2 to 1.6. Continue IV fluid hydration and follow-up creatinine in a.m. CK levels returning to normal limits 05/10/2022. Hypokalemia resolved with repletion. Creatinine returned to normal at 0.8. Renal ultrasound was unremarkable. Urinalysis revealed mild UTI with 29 WBCs. Urine culture no growth after [address] scan revealed evidence of a distended bladder and findings suggestive of bladder outlet obstruction. Patient will be discharged home with antibiotics and Kim catheter. Patient should follow-up as an outpatient with urology. I have made urology group aware of patient follow-up. Disposition: HOME / SELF CARE / HOMELESS Final Discharge Diagnosis (Prints w/discharge instructions): Acute kidney injury secondary to obstructive uropathy. mild rhabdomyolysis. Metabolic acidosis. Hyponatremia. Hypokalemia. Hypomagnesia. Hypochloremia. Anemia Core Measure Documentation - Palliative Care Palliative Care/ Comfort Measures: Not Applicable - Core Measures Any of the following diagnoses?: none Exam - Constitutional Vitals: Temp Pulse Resp BP Pulse Ox 98.6 F 89 18 118/61 96 05/10/22 06:04 05/10/22 06:08 05/10/22 06:04 05/10/22 06:04 05/10/22 06:08 General appearance: Present: no acute distress, well-nourished - EENT Eyes: Present: PERRL ENT: hearing intact, clear oral mucosa - Neck Neck: Present: supple, normal ROM - Respiratory Respiratory effort: normal Respiratory: bilateral: CTA - Cardiovascular Heart Sounds: Present: S1 & S2. Absent: rub, click - Extremities Extremities: pulses symmetrical, No edema Peripheral Pulses: within normal limits - Abdominal General gastrointestinal: Present: soft, non-tender, non-distended, normal bowel sounds Male genitourinary: Present: normal - Integumentary Integumentary: Present: clear, warm, dry - Musculoskeletal Musculoskeletal: gait normal, strength equal bilaterally - Psychiatric Psychiatric: appropriate mood/affect, intact judgment & insight - Neurologic Neurologic: CNII-XII intact, moves all extremities Plan Activity: advance as tolerated Weight Bearing Status: Weight Bear as Tolerated Diet: regular Follow up with: LALO MORGAN MD [Primary Care Provider] - 3-5 Days ELIAS GUTIÉRREZ MD [Staff Physician] - 7 Days Prescriptions: levoFLOXacin [Levaquin TAB] 500 mg PO QDAY #7 tablet oxyCODONE /ACETAMINOPHEN [Percocet 5/325 mg] 1 tab PO Q8H PRN #14 tablet PRN Reason: Pain, Moderate (4-6)
[2022-05-10] MEDS: HEPARIN 5,000 UNIT/1 ML VIAL SUB-Q SCH ×2 (11:49→21:22)
[2022-05-10] MEDS: MORPHINE 4 MG/1 ML INJ IV PRN ×2 (12:49→20:20)
--- NOTE | 2022-05-10 16:50 | Event Note ---
Date: 05/10/22 Renal function is now within normal range. Will sign off.
[2022-05-10] MEDS ORDERED: ALPRAZolam 0.5 MG TAB PO ONE (22:46)
[2022-05-11] MEDS: oxyCODONE /ACETAMINOPHEN 5-325MG TAB PO PRN (00:08)
[2022-05-11] MEDS: SODIUM CHLORIDE 0.9% 1000 ML 1,000 ML IV SCH ×3 (00:27→21:21)
--- NOTE | 2022-05-11 09:20 | Progress Note ---
Assessment and Plan Assessment and plan: This is a 67-year-old man who has reportedly been presenting to the ER every other day for the past several weeks due to generalized feeling of illness. Lab work obtained in the ER was concerning for acute kidney injury and electrolyte derangements. Nephrology was consulted for further management. Patient states that he does not regularly follow up with a physician and therefore his medical history is unknown. He denies history of kidney stones or family history of kidney disease. He denies hematuria, dysuria, decreased urine output and urinary retention. The patient was admitted with diagnosis below Acute kidney injury secondary to obstructive uropathy mild rhabdomyolysis Metabolic acidosis Hyponatremia Hypokalemia Hypomagnesia Hypochloremia Anemia 05/09/2022. Hypokalemia has worsened. We will replete potassium and follow-up BMP. Kidney function has improved significantly with a creatinine from 4.2 to 1.6. Continue IV fluid hydration and follow-up creatinine in a.m. CK levels r eturning to normal limits 05/10/2022. Hypokalemia resolved with repletion. Creatinine returned to normal at 0.8. Renal ultrasound was unremarkable. Urinalysis revealed mild UTI with 29 WBCs. Urine culture no growth after [address] scan revealed evidence of a distended bladder and findings suggestive of bladder outlet obstruction. Patient will be discharged home with antibiotics and Kim catheter. Patient should follow-up as an outpatient with urology. I have made urology group aware of patient follow-up. 05/11/2022. Acute kidney injury has resolved and patient is back to baseline creatinine. I discussed the case with urology who will follow the patient up as an outpatient. Patient to discharge home with Kim. Patient is medically stable for discharge but he is unable to asssit with ADL's. CM went and assessed patiet and he is unable to use lower extremities. Patient states he lives alone and uses a wheelchair for mobility. CM asked if he had any family he stated they are all . CM asked if the patient would go to a SNF he stated yes because he has no help. Patient will need SNF placement History Interval history: This is a 67-year-old man who has reportedly been presenting to the ER every other day for the past several weeks due to generalized feeling of illness. Lab work obtained in the ER was concerning for acute kidney injury and electrolyte derangements. Nephrology was consulted for further management. Patient states that he does not regularly follow up with a physician and therefore his medical history is unknown. He denies history of kidney stones or family history of kidney disease. He denies hematuria, dysuria, decreased urine output and urinary retention. No new issues overnight Hospitalist Physical - Constitutional Vitals: Temp Pulse Resp BP Pulse Ox 98.7 F 67 20 142/68 96 05/11/22 08:32 05/11/22 08:32 05/11/22 08:32 05/11/22 08:32 05/11/22 08:32 General appearance: Present: no acute distress, well-nourished - EENT Eyes: Present: PERRL, EOM intact ENT: hearing intact, clear oral mucosa, dentition normal - Neck Neck: Present: supple, normal ROM - Respiratory Respiratory effort: normal Respiratory: bilateral: CTA - Cardiovascular Rhythm: regular Heart Sounds: Present: S1 & S2. Absent: gallop, rub - Extremities Extremities: no ischemia, No edema, Full ROM - Abdominal General gastrointestinal: soft, non-tender, non-distended, normal bowel sounds - Integumentary Integumentary: Present: clear, warm, dry - Neurologic Neurologic: CNII-XII intact, moves all extremities HEART Score - HEART Score Troponin: Troponin T < 0.010 ng/mL (0.00-0.029) 05/07/22 08:01 Results - Labs CBC & Chem 7: 05/10/22 02:59 05/10/22 02:59 Labs: Laboratory Last Values WBC 10.3 K/mm3 (4.5-11.0) 05/10/22 02:59 RBC 3.34 M/mm3 (3.65-5.03) L 05/10/22 02:59 Hgb 9.3 gm/dl (11.8-15.2) L 05/10/22 02:59 Hct 28.7 % (35.5-45.6) L 05/10/22 02:59 MCV 86 fl (84-94) 05/10/22 02:59 MCH 28 pg (28-32) 05/10/22 02:59 MCHC 33 % (32-34) 05/10/22 02:59 RDW 17.5 % (13.2-15.2) H 05/10/22 02:59 Plt Count 324 K/mm3 (140-440) 05/10/22 02:59 Lymph % (Auto) 6.9 % (13.4-35.0) L 05/08/22 08:21 [place] % (Auto) 6.3 % (0.0-7.3) 05/09/22 06:03 Eos % (Auto) 0.5 % (0.0-4.3) 05/09/22 06:03 Baso % (Auto) 0.1 % (0.0-1.8) 05/08/22 08:21 Lymph # (Auto) 0.9 K/mm3 (1.2-5.4) L 05/08/22 08:21 [place] # (Auto) 0.6 K/mm3 (0.0-0.8) 05/09/22 06:03 Eos # (Auto) 0.0 K/mm3 (0.0-0.4) 05/09/22 06:03 Baso # (Auto) 0.0 K/mm3 (0.0-0.1) 05/09/22 06:03 Add Manual Diff Complete 05/10/22 02:59 Total Counted 100 05/10/22 02:59 Seg Neutrophils % 85.4 % (40.0-70.0) H 05/09/22 06:03 Seg Neuts % (Manual) 91.0 % (40.0-70.0) H 05/10/22 02:59 Band Neutrophils % 0 % 05/10/22 02:59 Lymphocytes % (Manual) 4.0 % (13.4-35.0) L 05/10/22 02:59 Reactive Lymphs % (Man) 0 % 05/10/22 02:59 Monocytes % (Manual) 5.0 % (0.0-7.3) 05/10/22 02:59 Eosinophils % (Manual) 0 % (0.0-4.3) 05/10/22 02:59 Basophils % (Manual) 0 % (0.0-1.8) 05/10/22 02:59 Metamyelocytes % 0 % 05/10/22 02:59 Myelocytes % 0 % 05/10/22 02:59 Promyelocytes % 0 % 05/10/22 02:59 Blast Cells % 0 % 05/10/22 02:59 Nucleated RBC % Not Reportable 05/10/22 02:59 Seg Neutrophils # 8.7 K/mm3 (1.8-7.7) H 05/09/22 06:03 Seg Neutrophils # Man 9.4 K/mm3 (1.8-7.7) H 05/10/22 02:59 Band Neutrophils # 0.0 K/mm3 05/10/22 02:59 Lymphocytes # (Manual) 0.4 K/mm3 (1.2-5.4) L 05/10/22 02:59 Abs React Lymphs (Man) 0.0 K/mm3 05/10/22 02:59 Monocytes # (Manual) 0.5 K/mm3 (0.0-0.8) 05/10/22 02:59 Eosinophils # (Manual) 0.0 K/mm3 (0.0-0.4) 05/10/22 02:59 Basophils # (Manual) 0.0 K/mm3 (0.0-0.1) 05/10/22 02:59 Metamyelocytes # 0.0 K/mm3 05/10/22 02:59 Myelocytes # 0.0 K/mm3 05/10/22 02:59 Promyelocytes # 0.0 K/mm3 05/10/22 02:59 Blast Cells # 0.0 K/mm3 05/10/22 02:59 WBC Morphology Not Reportable 05/10/22 02:59 Hypersegmented Neuts Not Reportable 05/10/22 02:59 Hyposegmented Neuts Not Reportable 05/10/22 02:59 Hypogranular Neuts Not Reportable 05/10/22 02:59 Smudge Cells Not Reportable 05/10/22 02:59 Toxic Granulation Not Reportable 05/10/22 02:59 Toxic Vacuolation Not Reportable 05/10/22 02:59 Dohle Bodies Not Reportable 05/10/22 02:59 Pelger-Huet Anomaly Not Reportable 05/10/22 02:59 Kwabena Rods Not Reportable 05/10/22 02:59 Platelet Estimate Consistent w auto 05/10/22 02:59 Clumped Platelets Not Reportable 05/10/22 02:59 Plt Clumps, EDTA Not Reportable 05/10/22 02:59 Large Platelets Not Reportable 05/10/22 02:59 Giant Platelets Not Reportable 05/10/22 02:59 Platelet Satelliting Not Reportable 05/10/22 02:59 Plt Morphology Comment Not Reportable 05/10/22 02:59 RBC Morphology Not Reportable 05/10/22 02:59 Dimorphic RBCs Not Reportable 05/10/22 02:59 Polychromasia Not Reportable 05/10/22 02:59 Hypochromasia Not Reportable 05/10/22 02:59 Poikilocytosis Not Reportable 05/10/22 02:59 Anisocytosis 1+ 05/10/22 02:59 Microcytosis Not Reportable 05/10/22 02:59 Macrocytosis Not Reportable 05/10/22 02:59 Spherocytes Not Reportable 05/10/22 02:59 Pappenheimer Bodies Not Reportable 05/10/22 02:59 Sickle Cells Not Reportable 05/10/22 02:59 Target Cells Not Reportable 05/10/22 02:59 Tear Drop Cells Not Reportable 05/10/22 02:59 Ovalocytes Not Reportable 05/10/22 02:59 Helmet Cells Not Reportable 05/10/22 02:59 Loomis-Caberfae Bodies Not Reportable 05/10/22 02:59 Bock Rings Not Reportable 05/10/22 02:59 Franklin Cells Not Reportable 05/10/22 02:59 Bite Cells Not Reportable 05/10/22 02:59 Crenated Cell Not Reportable 05/10/22 02:59 Elliptocytes Not Reportable 05/10/22 02:59 Acanthocytes (Spur) Not Reportable 05/10/22 02:59 Rouleaux Not Reportable 05/10/22 02:59 Hemoglobin C Crystals Not Reportable 05/10/22 02:59 Schistocytes Not Reportable 05/10/22 02:59 Malaria parasites Not Reportable 05/10/22 02:59 Daniele Bodies Not Reportable 05/10/22 02:59 Hem Pathologist Commnt No 05/10/22 02:59 Sodium 138 mmol/L (137-145) 05/10/22 02:59 Potassium 3.4 mmol/L (3.6-5.0) L 05/10/22 02:59 Chloride 106.3 mmol/L (98-107) 05/10/22 02:59 Carbon Dioxide 20 mmol/L (22-30) L 05/10/22 02:59 Anion Gap 15 mmol/L 05/10/22 02:59 BUN 36 mg/dL (9-20) H 05/10/22 02:59 Creatinine 0.8 mg/dL (0.8-1.3) 05/10/22 02:59 Estimated GFR > 60 ml/min 05/10/22 02:59 BUN/Creatinine Ratio 45 % 05/10/22 02:59 Glucose 101 mg/dL (75-100) H 05/10/22 02:59 POC Glucose 87 mg/dL (70-105) 05/07/22 04:22 Lactic Acid 0.60 mmol/L (0.7-2.0) L 05/08/22 23:26 Calcium 7.8 mg/dL (8.4-10.2) L 05/10/22 02:59 Magnesium 3.10 mg/dL (1.7-2.3) H 05/08/22 08:21 Total Bilirubin 0.20 mg/dL (0.1-1.2) 05/09/22 06:03 AST 49 units/L (5-40) H 05/09/22 06:03 ALT 27 units/L (7-56) 05/09/22 06:03 Alkaline Phosphatase 73 units/L (35-129) 05/09/22 06:03 Total Creatine Kinase 936 units/L (55-170) H 05/09/22 06:03 Troponin T < 0.010 ng/mL (0.00-0.029) 05/07/22 08:01 Total Protein 6.1 g/dL (6.3-8.2) L 05/09/22 06:03 Albumin 2.5 g/dL (3.9-5) L 05/09/22 06:03 Albumin/Globulin Ratio 0.7 % 05/09/22 06:03 Urine Color Yellow (Yellow) 05/07/22 Unknown Urine Turbidity Slightly cloudy (Clear) 05/07/22 Unknown Urine pH 5.0 (5.0-7.0) 05/07/22 Unknown Ur Specific [place] 1.025 (1.003-1.030) 05/07/22 Unknown Urine Protein <30 mg dl mg/dL (Negative) 05/07/22 Unknown Urine Glucose (UA) Negative mg/dL (Negative) 05/07/22 Unknown Urine Ketones Negative mg/dL (Negative) 05/07/22 Unknown Urine Blood Large (Negative) A 05/07/22 Unknown Urine Nitrite Negative (Negative) 05/07/22 Unknown Urine Bilirubin Negative (Negative) 05/07/22 Unknown Urine Urobilinogen < 2.0 mg/dL (<2.0) 05/07/22 Unknown Ur Leukocyte Esterase Negative (Negative) 05/07/22 Unknown Urine WBC (Auto) 29.0 /HPF (0.0-6.0) H 05/07/22 Unknown Urine RBC (Auto) > 182.0 /HPF (0.0-6.0) 05/07/22 Unknown U Epithel Cells (Auto) 2.0 /HPF (0-13.0) 05/07/22 Unknown Hyaline Casts 4 /LPF 05/07/22 Unknown Urine Mucus 2+ /HPF 05/07/22 Unknown Urine Creatinine 51.2 mg/dL (0.1-20.0) H 05/09/22 00:14 Urine Sodium 41 mmol/L 05/09/22 00:14 Salicylates 10.4 mg/dL (2.8-20.0) 05/08/22 08:21 Urine Opiates Screen Presumptive negative 05/09/22 00:14 Urine Methadone Screen Presumptive negative 05/09/22 00:14 Acetaminophen 5.0 ug/mL (10.0-30.0) L 05/07/22 08:01 Ur Barbiturates Screen Presumptive negative 05/09/22 00:14 Ur Phencyclidine Scrn Presumptive negative 05/09/22 00:14 Ur Amphetamines Screen Presumptive negative 05/09/22 00:14 U Benzodiazepines Scrn Presumptive positive 05/09/22 00:14 Urine Cocaine Screen Presumptive negative 05/09/22 00:14 U Marijuana (THC) Screen Presumptive negative 05/09/22 00:14 Drugs of Abuse Note Disclamer 05/09/22 00:14 Plasma/Serum Alcohol < 0.01 % (0-0.07) 05/07/22 08:01 Hep Bs Antigen Non-reactive (Negative) 05/08/22 20:48 Hepatitis C Antibody Non-reactive (NonReactive) 05/08/22 20:48 Microbiology: Microbiology 05/07/22 Unknown Urine,Clean Catch Urine Culture - Final NO GROWTH AFTER 48 HOURS Kim/IV: Voiding Method Indwelling Catheter Active Medications - Current Medications Current Medications: Generic Name Dose Route Start Last Admin Trade Name Freq PRN Reason Stop Dose Admin Acetaminophen 650 mg 05/08/22 10:38 Acetaminophen 325 Mg Tab PO Q4H PRN Pain MILD(1-3)/Fever >100.5/QUARLES Heparin Sodium (Porcine) 5,000 unit 05/08/22 22:00 05/10/22 21:22 Heparin 5,000 Unit/1 Ml Vial SUB-Q 5,000 unit Q12HR LORENZO Administration Sodium Chloride 1,000 mls @ 125 mls/hr 05/08/22 11:30 05/11/22 00:27 Nacl 0.9% 1000 Ml IV 125 mls/hr DIRECT LORENZO Administration Morphine Sulfate 4 mg 05/08/22 10:38 05/10/22 20:20 Morphine 4 Mg/1 Ml Inj IV 4 mg Q4H PRN Administration Pain , Severe (7-10) Ondansetron HCl 4 mg 05/08/22 10:38 Ondansetron 4 Mg/2 Ml Inj IV Q8H PRN Nausea And Vomiting Oxycodone/Acetaminophen 1 tab 05/08/22 10:38 05/11/22 00:08 Oxycodone /Acetaminophen 5-325mg Tab PO 1 tab Q6H PRN Administration Pain, Moderate (4-6) Sodium Chloride 10 ml 05/08/22 22:00 05/10/22 21:23 Sodium Chloride 0.9% 10 Ml Flush Syringe IV 10 ml BID LORENZO Administration Sodium Chloride 10 ml 05/08/22 10:38 Sodium Chloride 0.9% 10 Ml Flush Syringe IV PRN PRN LINE FLUSH
[2022-05-11] MEDS ORDERED: POTASSIUM CHLORIDE ER 20 MEQ TAB PO NR (11:00)
[2022-05-11] MEDS: HEPARIN 5,000 UNIT/1 ML VIAL SUB-Q SCH ×2 (11:21→21:15)
[2022-05-11] MEDS: ACETAMINOPHEN 325 MG TAB PO PRN (19:52)
[2022-05-12] MEDS: oxyCODONE /ACETAMINOPHEN 5-325MG TAB PO PRN ×4 (00:04→22:54)
[2022-05-12] MEDS: ACETAMINOPHEN 325 MG TAB PO PRN ×2 (04:40→13:21)
[2022-05-12 08:17] LABS: Hematocrit 28.3 % (35.5-45.6); Hemoglobin 9.2 gm/dl (11.8-15.2); Mean Corpuscular HGB Conc 33 % (32-34); Mean Corpuscular Volume 85 fl (84-94); Platelet Count 331 K/mm3 (140-440); Red Blood Count 3.31 M/mm3 (3.65-5.03); Red Cell Distribution Width 17.5 % (13.2-15.2)
[2022-05-12 08:43] LABS: Blood Urea Nitrogen 10 mg/dL (9-20); Hemolysis Index 3
[2022-05-12 08:48] LABS: BUN/Creatinine Ratio 20
[2022-05-12] MEDS: HEPARIN 5,000 UNIT/1 ML VIAL SUB-Q SCH ×2 (09:55→23:01)
[2022-05-12] MEDS: POTASSIUM CHLORIDE ER 20 MEQ TAB PO SCH (09:55)
--- NOTE | 2022-05-12 11:15 | Discharge Summary ---
Providers - Providers Date of Admission: 05/08/22 10:38 Date of discharge: 05/12/22 Attending physician: PASQUALE JOHNSON MD 05/08/22 07:39 Consult to Physician [CONS] Urgent Comment: Consulting Provider: DESTINY BOWLING Physician Instructions: Reason For Exam: acute renal failure 05/08/22 12:35 Physical Therapy Evaluation and Treat [CONS] Routine Comment: Reason For Exam: generalized weakness 05/08/22 12:36 Consult to Case Management [CONS] Routine Services Needed at Discharge: Other Notified:: cm Additional Physician Instructions: discharge planning 05/08/22 16:04 Physical Therapy Evaluation and Treat [CONS] Stat Comment: Eval and Treat Reason For Exam: Physical Therapy Primary care physician: LALO MORGAN Hospitalization Reason for admission: generalized weakness Condition: Stable Hospital course: HPI: This is a 67-year-old man who has reportedly been presenting to the ER every oth er day for the past several weeks due to generalized feeling of illness. Lab work obtained in the ER was concerning for acute kidney injury and electrolyte derangements. Nephrology was consulted for further management. Patient states that he does not regularly follow up with a physician and therefore his medical history is unknown. He denies history of kidney stones or family history of kidney disease. He denies hematuria, dysuria, decreased urine output and urinary retention. The patient was admitted with diagnosis below Assessment Acute kidney injury secondary to obstructive uropathy mild rhabdomyolysis Metabolic acidosis Hyponatremia Hypokalemia Hypomagnesia Hypochloremia Anemia Hospital Course: 05/09/2022. Hypokalemia has worsened. We will replete potassium and follow-up BMP. Kidney function has improved significantly with a creatinine from 4.2 to 1.6. Continue IV fluid hydration and follow-up creatinine in a.m. CK levels returning to normal limits 05/10/2022. Hypokalemia resolved with repletion. Creatinine returned to normal at 0.8. Renal ultrasound was unremarkable. Urinalysis revealed mild UTI with 29 WBCs. Urine culture no growth after [address] scan revealed evidence of a distended bladder and findings suggestive of bladder outlet obstruction. Patient will be discharged home with antibiotics and Kim catheter. Patient should follow-up as an outpatient with urology. I have made urology group aware of patient follow-up. 05/11/2022. Acute kidney injury has resolved and patient is back to baseline creatinine. I discussed the case with urology who will follow the patient up as an outpatient. Patient to discharge home with Judy. Patient is medically stable for discharge but he is unable to asssit with ADL's. CM went and assessed patiet and he is unable to use lower extremities. Patient states he lives alone and uses a wheelchair for mobility. CM asked if he had any family he stated the y are all . CM asked if the patient would go to a SNF he stated yes because he has no help. Patient will need SNF placement 05/12: metabolic issues resolved. instructions to follow up with urology regarding urinary retention. Can be discharged to subacute rehab as outlined in PT note. Discharge pending placement. Disposition: [facility] Final Discharge Diagnosis (Prints w/discharge instructions): Acute kidney injury secondary to obstructive uropathy. mild rhabdomyolysis. Metabolic acidosis. Hyponatremia. Hypokalemia. Hypomagnesia. Hypochloremia. Anemia Time spent for discharge: 35 Core Measure Documentation - Palliative Care Palliative Care/ Comfort Measures: Not Applicable - Core Measures Any of the following diagnoses?: none Exam - Physical Exam Narrative exam: General appearance: Present: no acute distress, well-nourished - EENT Eyes: Present: PERRL, EOM intact ENT: hearing intact, clear oral mucosa, dentition normal - Neck Neck: Present: supple, normal ROM - Respiratory Respiratory effort: normal Respiratory: bilateral: CTA - Cardiovascular Rhythm: regular Heart Sounds: Present: S1 & S2. Absent: gallop, rub - Extremities Extremities: no ischemia, No edema, Full ROM - Abdominal General gastrointestinal: soft, non-tender, non-distended, normal bowel sounds - Integumentary Integumentary: Present: clear, warm, dry - Neurologic Neurologic: CNII-XII intact, moves all extremities - Constitutional Vitals: Temp Pulse Resp BP Pulse Ox 98.7 F 67 20 142/68 98 05/11/22 08:32 05/11/22 08:32 05/11/22 08:32 05/11/22 08:32 05/12/22 01:00 Plan Follow up with: LALO MORGAN MD [Primary Care Provider] - 3-5 Days ELIAS GUTIÉRREZ MD [Staff Physician] - 7 Days Prescriptions: levoFLOXacin [Levaquin TAB] 500 mg PO QDAY #7 tablet oxyCODONE /ACETAMINOPHEN [Percocet 5/325 mg] 1 tab PO Q8H PRN #14 tablet PRN Reason: Pain, Moderate (4-6)
[2022-05-12 11:33] LABS: Basophils % (Manual) 0 % (0.0-1.8); Total Cells Counted 100
[2022-05-12 11:35] LABS: Anisocytosis 1+; Hypochromasia 1+; Large Platelets Rare; Platelet Estimate Consistent w Auto
[2022-05-13 05:40] VITALS: BP 149/63
--- NOTE | 2022-05-13 08:06 | Progress Note ---
Assessment and Plan Assessment and plan: HPI: This is a 67-year-old man who has reportedly been presenting to the ER every other day for the past several weeks due to generalized feeling of illness. Lab work obtained in the ER was concerning for acute kidney injury and electrolyte derangements. Nephrology was consulted for further management. Patient states that he does not regularly follow up with a physician and therefore his medical history is unknown. He denies history of kidney stones or family history of kidney disease. He denies hematuria, dysuria, decreased urine output and urinary retention. The patient was admitted with diagnosis below Assessment Acute kidney injury secondary to obstructive uropathy mild rhabdomyolysis Metabolic acidosis Hyponatremia Hypokalemia Hypomagnesia Hypochloremia Anemia #Advance care planning Disease education conducted, care plan discussed, diagnoses discussed, prognosis discussed, patient is full code, patient acknowledges understanding and agree with care plan, +30 minutes. Hospital Course: 05/09/2022. Hypokalemia has worsened. We will replete potassium and follow-up BMP. Kidney function has improved significantly with a creatinine from 4.2 to 1.6. Continue IV fluid hydration and follow-up creatinine in a.m. CK levels returning to normal limits 05/10/2022. Hypokalemia resolved with repletion. Creatinine returned to normal at 0.8. Renal ultrasound was unremarkable. Urinalysis revealed mild UTI with 29 WBCs. Urine culture no growth after [address] scan revealed evidence of a distended bladder and findings suggestive of bladder outlet obstruction. Patient will be discharged home with antibiotics and Kim catheter. Patient should follow-up as an outpatient with urology. I have made urology group aware of patient follow-up. 05/11/2022. Acute kidney injury has resolved and patient is back to baseline creatinine. I discussed the case with urology who will follow the patient up as an outpatient. Patient to discharge home with Kim. Patient is medically stable for discharge but he is unable to asssit with ADL's. CM went and assessed patiet and he is unable to use lower extremities. Patient states he lives alone and uses a wheelchair for mobility. CM asked if he had any family he stated they are all . CM asked if the patient would go to a SNF he stated yes because he has no help. Patient will need SNF placement 05/12: metabolic issues resolved. instructions to follow up with urology regarding urinary retention. Can be discharged to subacute rehab as outlined in PT note. Discharge pending placement. 05/13 pending placement. D/w CM this AM Will be d/c today. History Interval history: No acute complaints Hospitalist Physical - Physical exam Narrative exam: General appearance: Present: no acute distress, well-nourished - EENT Eyes: Present: PERRL, EOM intact ENT: hearing intact, clear oral mucosa, dentition normal - Neck Neck: Present: supple, normal ROM - Respiratory Respiratory effort: normal Respiratory: bilateral: CTA - Cardiovascular Rhythm: regular Heart Sounds: Present: S1 & S2. Absent: gallop, rub - Extremities Extremities: no ischemia, No edema, Full ROM - Abdominal General gastrointestinal: soft, non-tender, non-distended, normal bowel sounds - Integumentary Integumentary: Present: clear, warm, dry - Neurologic Neurologic: CNII-XII intact, moves all extremities - Constitutional Vitals: Temp Pulse Resp BP Pulse Ox 98.9 F 80 22 149/63 96 05/13/22 05:16 05/13/22 05:16 05/13/22 05:16 05/13/22 05:16 05/13/22 05:16 General appearance: Present: no acute distress, well-nourished HEART Score - HEART Score Troponin: Troponin T < 0.010 ng/mL (0.00-0.029) 05/07/22 08:01 Results - Labs CBC & Chem 7: 05/12/22 06:53 05/12/22 06:53 Labs: Laboratory Last Values WBC 9.7 K/mm3 (4.5-11.0) 05/12/22 06:53 RBC 3.31 M/mm3 (3.65-5.03) L 05/12/22 06:53 Hgb 9.2 gm/dl (11.8-15.2) L 05/12/22 06:53 Hct 28.3 % (35.5-45.6) L 05/12/22 06:53 MCV 85 fl (84-94) 05/12/22 06:53 MCH 28 pg (28-32) 05/12/22 06:53 MCHC 33 % (32-34) 05/12/22 06:53 RDW 17.5 % (13.2-15.2) H 05/12/22 06:53 Plt Count 331 K/mm3 (140-440) 05/12/22 06:53 Lymph % (Auto) 6.9 % (13.4-35.0) L 05/08/22 08:21 [place] % (Auto) 6.3 % (0.0-7.3) 05/09/22 06:03 Eos % (Auto) 0.5 % (0.0-4.3) 05/09/22 06:03 Baso % (Auto) 0.1 % (0.0-1.8) 05/08/22 08:21 Lymph # (Auto) 0.9 K/mm3 (1.2-5.4) L 05/08/22 08:21 [place] # (Auto) 0.6 K/mm3 (0.0-0.8) 05/09/22 06:03 Eos # (Auto) 0.0 K/mm3 (0.0-0.4) 05/09/22 06:03 Baso # (Auto) 0.0 K/mm3 (0.0-0.1) 05/09/22 06:03 Add Manual Diff Complete 05/12/22 06:53 Total Counted 100 05/12/22 06:53 Seg Neutrophils % 85.4 % (40.0-70.0) H 05/09/22 06:03 Seg Neuts % (Manual) 85.0 % (40.0-70.0) H 05/12/22 06:53 Band Neutrophils % 0 % 05/12/22 06:53 Lymphocytes % (Manual) 5.0 % (13.4-35.0) L 05/12/22 06:53 Reactive Lymphs % (Man) 0 % 05/12/22 06:53 Monocytes % (Manual) 8.0 % (0.0-7.3) H 05/12/22 06:53 Eosinophils % (Manual) 2.0 % (0.0-4.3) 05/12/22 06:53 Basophils % (Manual) 0 % (0.0-1.8) 05/12/22 06:53 Metamyelocytes % 0 % 05/12/22 06:53 Myelocytes % 0 % 05/12/22 06:53 Promyelocytes % 0 % 05/12/22 06:53 Blast Cells % 0 % 05/12/22 06:53 Nucleated RBC % Not Reportable 05/12/22 06:53 Seg Neutrophils # 8.7 K/mm3 (1.8-7.7) H 05/09/22 06:03 Seg Neutrophils # Man 8.2 K/mm3 (1.8-7.7) H 05/12/22 06:53 Band Neutrophils # 0.0 K/mm3 05/12/22 06:53 Lymphocytes # (Manual) 0.5 K/mm3 (1.2-5.4) L 05/12/22 06:53 Abs React Lymphs (Man) 0.0 K/mm3 05/12/22 06:53 Monocytes # (Manual) 0.8 K/mm3 (0.0-0.8) 05/12/22 06:53 Eosinophils # (Manual) 0.2 K/mm3 (0.0-0.4) 05/12/22 06:53 Basophils # (Manual) 0.0 K/mm3 (0.0-0.1) 05/12/22 06:53 Metamyelocytes # 0.0 K/mm3 05/12/22 06:53 Myelocytes # 0.0 K/mm3 05/12/22 06:53 Promyelocytes # 0.0 K/mm3 05/12/22 06:53 Blast Cells # 0.0 K/mm3 05/12/22 06:53 WBC Morphology Not Reportable 05/12/22 06:53 Hypersegmented Neuts Not Reportable 05/12/22 06:53 Hyposegmented Neuts Not Reportable 05/12/22 06:53 Hypogranular Neuts Not Reportable 05/12/22 06:53 Smudge Cells Not Reportable 05/12/22 06:53 Toxic Granulation Not Reportable 05/12/22 06:53 Toxic Vacuolation Not Reportable 05/12/22 06:53 Dohle Bodies Not Reportable 05/12/22 06:53 Pelger-Huet Anomaly Not Reportable 05/12/22 06:53 Kwabena Rods Not Reportable 05/12/22 06:53 Platelet Estimate Consistent w auto 05/12/22 06:53 Clumped Platelets Not Reportable 05/12/22 06:53 Plt Clumps, EDTA Not Reportable 05/12/22 06:53 Large Platelets Rare 05/12/22 06:53 Giant Platelets Not Reportable 05/12/22 06:53 Platelet Satelliting Not Reportable 05/12/22 06:53 Plt Morphology Comment Not Reportable 05/12/22 06:53 RBC Morphology Not Reportable 05/12/22 06:53 Dimorphic RBCs Not Reportable 05/12/22 06:53 Polychromasia Not Reportable 05/12/22 06:53 Hypochromasia 1+ 05/12/22 06:53 Poikilocytosis Not Reportable 05/12/22 06:53 Anisocytosis 1+ 05/12/22 06:53 Microcytosis Few 05/12/22 06:53 Macrocytosis Not Reportable 05/12/22 06:53 Spherocytes Not Reportable 05/12/22 06:53 Pappenheimer Bodies Not Reportable 05/12/22 06:53 Sickle Cells Not Reportable 05/12/22 06:53 Target Cells Not Reportable 05/12/22 06:53 Tear Drop Cells Not Reportable 05/12/22 06:53 Ovalocytes Not Reportable 05/12/22 06:53 Helmet Cells Not Reportable 05/12/22 06:53 Loomis-Biddle Bodies Not Reportable 05/12/22 06:53 Montgomery Rings Not Reportable 05/12/22 06:53 Aubree Cells Not Reportable 05/12/22 06:53 Bite Cells Not Reportable 05/12/22 06:53 Crenated Cell Not Reportable 05/12/22 06:53 Elliptocytes Not Reportable 05/12/22 06:53 Acanthocytes (Spur) Not Reportable 05/12/22 06:53 Rouleaux Not Reportable 05/12/22 06:53 Hemoglobin C Crystals Not Reportable 05/12/22 06:53 Schistocytes Not Reportable 05/12/22 06:53 Malaria parasites Not Reportable 05/12/22 06:53 Daniele Bodies Not Reportable 05/12/22 06:53 Hem Pathologist Commnt No 05/12/22 06:53 Sodium 137 mmol/L (137-145) 05/12/22 06:53 Potassium 3.0 mmol/L (3.6-5.0) L 05/12/22 06:53 Chloride 105.7 mmol/L (98-107) 05/12/22 06:53 Carbon Dioxide 23 mmol/L (22-30) 05/12/22 06:53 Anion Gap 11 mmol/L 05/12/22 06:53 BUN 10 mg/dL (9-20) 05/12/22 06:53 Creatinine 0.5 mg/dL (0.8-1.3) L 05/12/22 06:53 Estimated GFR > 60 ml/min 05/12/22 06:53 BUN/Creatinine Ratio 20 % 05/12/22 06:53 Glucose 106 mg/dL (75-100) H 05/12/22 06:53 POC Glucose 87 mg/dL (70-105) 05/07/22 04:22 Lactic Acid 0.60 mmol/L (0.7-2.0) L 05/08/22 23:26 Calcium 8.0 mg/dL (8.4-10.2) L 05/12/22 06:53 Magnesium 3.10 mg/dL (1.7-2.3) H 05/08/22 08:21 Total Bilirubin 0.20 mg/dL (0.1-1.2) 05/09/22 06:03 AST 49 units/L (5-40) H 05/09/22 06:03 ALT 27 units/L (7-56) 05/09/22 06:03 Alkaline Phosphatase 73 units/L (35-129) 05/09/22 06:03 Total Creatine Kinase 936 units/L (55-170) H 05/09/22 06:03 Troponin T < 0.010 ng/mL (0.00-0.029) 05/07/22 08:01 Total Protein 6.1 g/dL (6.3-8.2) L 05/09/22 06:03 Albumin 2.5 g/dL (3.9-5) L 05/09/22 06:03 Albumin/Globulin Ratio 0.7 % 05/09/22 06:03 Urine Color Yellow (Yellow) 05/07/22 Unknown Urine Turbidity Slightly cloudy (Clear) 05/07/22 Unknown Urine pH 5.0 (5.0-7.0) 05/07/22 Unknown Ur Specific Harper 1.025 (1.003-1.030) 05/07/22 Unknown Urine Protein <30 mg dl mg/dL (Negative) 05/07/22 Unknown Urine Glucose (UA) Negative mg/dL (Negative) 05/07/22 Unknown Urine Ketones Negative mg/dL (Negative) 05/07/22 Unknown Urine Blood Large (Negative) A 05/07/22 Unknown Urine Nitrite Negative (Negative) 05/07/22 Unknown Urine Bilirubin Negative (Negative) 05/07/22 Unknown Urine Urobilinogen < 2.0 mg/dL (<2.0) 05/07/22 Unknown Ur Leukocyte Esterase Negative (Negative) 05/07/22 Unknown Urine WBC (Auto) 29.0 /HPF (0.0-6.0) H 05/07/22 Unknown Urine RBC (Auto) > 182.0 /HPF (0.0-6.0) 05/07/22 Unknown U Epithel Cells (Auto) 2.0 /HPF (0-13.0) 05/07/22 Unknown Hyaline Casts 4 /LPF 05/07/22 Unknown Urine Mucus 2+ /HPF 05/07/22 Unknown Urine Creatinine 51.2 mg/dL (0.1-20.0) H 05/09/22 00:14 Urine Sodium 41 mmol/L 05/09/22 00:14 Nasal Screen MRSA (PCR) Negative (Negative) 05/09/22 00:14 Salicylates 10.4 mg/dL (2.8-20.0) 05/08/22 08:21 Urine Opiates Screen Presumptive negative 05/09/22 00:14 Urine Methadone Screen Presumptive negative 05/09/22 00:14 Acetaminophen 5.0 ug/mL (10.0-30.0) L 05/07/22 08:01 Ur Barbiturates Screen Presumptive negative 05/09/22 00:14 Ur Phencyclidine Scrn Presumptive negative 05/09/22 00:14 Ur Amphetamines Screen Presumptive negative 05/09/22 00:14 U Benzodiazepines Scrn Presumptive positive 05/09/22 00:14 Urine Cocaine Screen Presumptive negative 05/09/22 00:14 U Marijuana (THC) Screen Presumptive negative 05/09/22 00:14 Drugs of Abuse Note Disclamer 05/09/22 00:14 Plasma/Serum Alcohol < 0.01 % (0-0.07) 05/07/22 08:01 Hep Bs Antigen Non-reactive (Negative) 05/08/22 20:48 Hepatitis C Antibody Non-reactive (NonReactive) 05/08/22 20:48 Kim/IV: Voiding Method Indwelling Catheter Active Medications - Current Medications Current Medications: Generic Name Dose Route Start Last Admin Trade Name Pericoq PRN Reason Stop Dose Admin Acetaminophen 650 mg 05/08/22 10:38 05/12/22 13:21 Acetaminophen 325 Mg Tab PO 650 mg Q4H PRN Administration Pain MILD(1-3)/Fever >100.5/QUARLES Heparin Sodium (Porcine) 5,000 unit 05/08/22 22:00 05/12/22 23:01 Heparin 5,000 Unit/1 Ml Vial SUB-Q 5,000 unit Q12HR LORENZO Administration Ondansetron HCl 4 mg 05/08/22 10:38 Ondansetron 4 Mg/2 Ml Inj IV Q8H PRN Nausea And Vomiting Oxycodone/Acetaminophen 1 tab 05/08/22 10:38 05/12/22 22:54 Oxycodone /Acetaminophen 5-325mg Tab PO 1 tab Q6H PRN Administration Pain, Moderate (4-6) Potassium Chloride 40 meq 05/12/22 10:00 05/12/22 09:55 Potassium Chloride Er 20 Meq Tab PO 05/13/22 10:01 40 meq QDAY LORENZO Administration Sodium Chloride 10 ml 05/08/22 22:00 05/12/22 23:01 Sodium Chloride 0.9% 10 Ml Flush Syringe IV 10 ml BID LORENZO Administration Sodium Chloride 10 ml 05/08/22 10:38 Sodium Chloride 0.9% 10 Ml Flush Syringe IV PRN PRN LINE FLUSH
[2022-05-13] MEDS: POTASSIUM CHLORIDE ER 20 MEQ TAB PO SCH (10:07)
[2022-05-13] MEDS: HEPARIN 5,000 UNIT/1 ML VIAL SUB-Q SCH (10:09)
[2022-05-13] MEDS: oxyCODONE /ACETAMINOPHEN 5-325MG TAB PO PRN (10:15)
[2022-05-14 12:14] LABS: ANA Screen, IFA Positive (Negative)
[2022-05-14 21:59] LABS: Myeloperoxidase Antibody <1.0 AI (<1.0)
== END 2022-05-13 16:00 | DRG 693 ==
LOC: ED 17:50 → 3A 05-08 10:38
PROVIDERS: ADMIT Student in an Organized Health Care Education/Training Program; ATTEND Internal Medicine
DX: N13.8 Other obstructive and reflux uropathy (principal); N17.0 Acute kidney failure with tubular necrosis; R65.11 Systemic inflammatory response syndrome (SIRS) of non-infectious origin with acute organ dysfunction; N39.0 Urinary tract infection, site not specified; E87.1 Hypo-osmolality and hyponatremia; M62.82 Rhabdomyolysis; E72.19 Other disorders of sulfur-bearing amino-acid metabolism; E87.2 Acidosis; E86.0 Dehydration; E78.5 Hyperlipidemia, unspecified; E87.6 Hypokalemia; R31.9 Hematuria, unspecified; R31.29 Other microscopic hematuria; E86.9 Volume depletion, unspecified; D64.9 Anemia, unspecified; E87.8 Other disorders of electrolyte and fluid balance, not elsewhere classified; Z95.5 Presence of coronary angioplasty implant and graft
CPT/HCPCS: 36415; 70450; 71046; 72125; 74176; 76770; 80048; 80053; 80307; 80320; 81001; 82140; 82550; 82570; 82962; 83735; 84300; 84484; 85007; 85025; 85027; 86021; 86038; 86160; 86706; 86803; 87086; 87641; 93005; G0378; J3490; G0480; J0696; J1644; J2270; J3411; J7030; U0003